=== PATIENT | female | born 1945 | race Hispanic/Latino ===

== ENCOUNTER 2021-04-21 10:04 | Emergency (ER) | payer MEDICARE ==
[~2021-04-21] VITALS: Ht 149.9 cm; Wt 68.0 kg
[2021-04-21 10:55] VITALS: BP 120/50
[2021-04-21 11:55] VITALS: BP 119/47
[2021-04-21 12:42] VITALS: BP 134/45
[2021-04-21] MEDS ORDERED: KETOROLAC 60 MG VIAL (30MG/ML) IM SCH (12:45)
[2021-04-21] MEDS ORDERED: HYDROCODONE/ACETAMINOPHEN 10/325 MG TAB PO SCH (12:45)
[2021-04-21] MEDS ORDERED: TRIAMCINOLONE ACETONIDE 40 MG/ML 1ML VIAL IM SCH (13:00)
[2021-04-21] MEDS ORDERED: BUPIVACAINE/PF 0.5% 30ML VIAL INJ SCH (13:00)
[2021-04-21] MEDS ORDERED: TRAM1TAB PO ×2 (13:33→13:37)
== END 2021-04-21 14:03 | disposition home or self-care (01) ==
LOC: EDH 10:04
DX: M70.62 Trochanteric bursitis, left hip (principal); I10 Essential (primary) hypertension; E78.5 Hyperlipidemia, unspecified; I25.10 Atherosclerotic heart disease of native coronary artery without angina pectoris; Y93.89 Activity, other specified
CPT/HCPCS: 20610; 96372; 99283; J1885; J3301; J3490

== ENCOUNTER → 2021-12-24 | Outpatient (CLI) | payer MEDICARE ==
[~2021-12-24] MED LIST: TRAM1TAB PO
== END | disposition home or self-care (01) ==
LOC: RAH 13:29
PROVIDERS: ATTEND Family Medicine
DX: M25.831 Other specified joint disorders, right wrist (principal); M85.88 Other specified disorders of bone density and structure, other site; G31.89 Other specified degenerative diseases of nervous system; W19.XXXA Unspecified fall, initial encounter; Y93.89 Activity, other specified; Y92.89 Other specified places as the place of occurrence of the external cause; Y99.8 Other external cause status
CPT/HCPCS: 70450; 73200

== ENCOUNTER 2023-06-14 13:08 | Emergency (ER) | payer MEDICARE ==
[~2023-06-14] VITALS: Ht 157.5 cm; Wt 62.6 kg
[2023-06-14] MEDS: DESMOPRESSIN 40MCG INJ 24 MCG in 0.9%NACL 50ML 50 ML IJ SCH ×2
[~2023-06-14 13:08] MED LIST changes: +ACET325C6 PO; +ASPRIN PO; +ATOR40TA69 PO; +CETI10TA57 PO; +CLOP-31 PO; +DOCU-116 PO; +ERGO1POW10 MC; +FLUT16H NASAL; +LACT10SO9 PO; +SERT-438 PO; +TIZA2CAP9 PO; -TRAM1TAB PO; +TRAM1TAB2 PO
[2023-06-14] MEDS ORDERED: NACL IV ONE (15:30)
[2023-06-14 15:34] LABS: BASOPHILS # (AUTO) 0.03 K/uL (0.00-0.20); BASOPHILS % (AUTO) 0.2 % (0.0-5.0); HEMATOCRIT 35.1 % (36-48); IMMATURE GRANULOCYTE ABSOLUTE 0.07 K/uL (0-1); LYMPHOCYTES # (AUTO) 0.8 K/uL (1.0-4.8); MEAN CORPUSCULAR HEMOGLOBIN 29.9 pg (27.0-33.0); MEAN CORPUSCULAR VOLUME 90.5 fL (79-99); MONOCYTES # (AUTO) 0.6 K/uL (0.1-1.0); MONOCYTES % (AUTO) 3.1 % (3.0-13.0); NEUTROPHILS # (AUTO) 17.7 K/uL (1.8-7.7); NEUTROPHILS % (AUTO) 92.3 % (40.0-77.0); PLATELET COUNT (AUTO) 333 K/uL (130-400); RED BLOOD CELL COUNT(AUTO) 3.88 MIL/uL (4.00-5.50); RED CELL DISTRIBUTION WIDTH 15.7 % (11.0-15.5); WHITE BLOOD COUNT (AUTO) 19.1 K/uL (4.8-10.8)
[2023-06-14 15:55] LABS: CREATININE 0.9 mg/dL (0.5-1.5); POTASSIUM 4.6 mmol/L (3.5-5.1)
[2023-06-14 16:00] LABS: ALBUMIN 3.5 g/dL (3.5-5.0); BILIRUBIN,TOTAL 0.6 mg/dL (0.2-1.0); TOTAL PROTEIN, SERUM 7.6 g/dL (6.0-8.3)
[2023-06-14 16:02] LABS: APPEARANCE,URINE TURBID (CLEAR); BILIRUBIN,URINE NEGATIVE (NEGATIVE); COLOR,URINE YELLOW (YELLOW); GLUCOSE, URINE (UA) NEGATIVE (NEGATIVE); KETONES,URINE NEGATIVE (NEGATIVE); LEUKOCYTE ESTERASE ,URINE 500 Leu/uL (NEGATIVE); NITRATE,URINE NEGATIVE (NEGATIVE); PROTEIN,URINE 20 mg/dL (NEGATIVE); UROBILINOGEN,URINE 0.2 mg/dL (0.2-1.0)
[2023-06-14 16:03] LABS: ADD UA MICROSCOPIC YES
[2023-06-14 16:07] LABS: BACTERIA,URINE MOD /HPF (None Seen); MUCUS,URINE RARE LPF (None Seen); RBC,URINE 26-50 /HPF (0-1); SQUAMOUS EPITHELIAL CELL,UR RARE /HPF (0-2); WBC,URINE 51-100 /HPF (0-1)
[2023-06-14] MEDS ORDERED: NICARDIPINE 25MG INJ IV ONE (17:59)
[2023-06-14] MEDS ORDERED: NICARDIPINE 25MG INJ 25 MG in 0.9% NACL 250ML 240 ML IV SCH (18:00)
[2023-06-14] MEDS ORDERED: ETOMIDATE 20MG VIAL ONE (19:06)
[2023-06-14] MEDS ORDERED: ROCURONIUM BROMIDE 10MG/1ML 5ML VL ONE (19:07)
[2023-06-14] MEDS ORDERED: FENTANYL 1000MCG+NS 100ML 100 ML IV ONE (19:12)
[2023-06-14 19:25] VITALS: PULSE 87; O2SAT 99
[2023-06-14] MEDS: MIDAZOLAM HCL 50 MG in 0.9%NACL 50ML 50 ML IV SCH (20:02)
[2023-06-14] MEDS: FENTANYL 2500MCG+NS 250ML IV.SOLN IV SCH (20:02)
[2023-06-14 20:04] LABS: ABG BASE EXCESS -2.5 mmol/L (-2.0-3.0); ABG HCO3 18.3 mmol/L (21.0-28.0); ABG OXYGEN SATURATION 98.1 % (95.0-99.0); ABG PCO2 21 mmHg (32-45); ABG PH 7.553 (7.35-7.450); CARBON MONOXIDE 0.3; HHb 1.9; PO2, ARTERIAL BG 112.4 mmHg (83.0-108.0); VENT MODE, BG AC (ROOM AIR)
[2023-06-14 20:34] LABS: INR 0.94 (0.85-1.15)
[2023-06-14 20:35] LABS: PARTIAL THROMBOPLASTIN TIME 27.7 SEC (26.3-35.5)
[2023-06-14 20:41] LABS: SARS-CoV-2, RNA, NAAT NEGATIVE SARS CoV-2 (NEGATIVE)
[2023-06-14] MEDS ORDERED: MANNITOL 20% 250ML BAG 250 ML IV ONE (20:46)
[2023-06-14] MEDS ORDERED: LEVETIRACETAM 500 MG/5 ML SD VIAL IV ONE (20:47)
[2023-06-14] MEDS ORDERED: LEVETIRACETAM 500 MG/5 ML SD VIAL IV SCH (21:00)
[2023-06-14] MEDS ORDERED: MANNITOL 20% 500ML BAG 500 ML IV SCH (21:00)
[2023-06-14 21:28] LABS: ABG BASE EXCESS -4.5 mmol/L (-2.0-3.0); ABG HCO3 19.4 mmol/L (21.0-28.0); ABG OXYGEN SATURATION 97.7 % (95.0-99.0); ABG PCO2 31 mmHg (32-45); ABG PH 7.412 (7.35-7.450); CARBON MONOXIDE 0.5; HHb 2.3; PO2, ARTERIAL BG 114.5 mmHg (83.0-108.0); VENT MODE, BG AC (ROOM AIR)
[2023-06-14 21:35] VITALS: PULSE 70; O2SAT 99
[2023-06-14] MEDS ORDERED: PROPOFOL 1000 MG/100 ML 100 ML IV ONE (22:51)
[2023-06-14 23:00] VITALS: PULSE 69; O2SAT 99
[2023-06-14] MEDS ORDERED: PROPOFOL 1000 MG/100 ML 100 ML IV SCH (23:00)
[2023-06-15] MEDS: DESMOPRESSIN 40MCG INJ 24 MCG in 0.9%NACL 50ML 50 ML IJ SCH ×2
[2023-06-15 00:01] VITALS: PULSE 71; O2SAT 99
[2023-06-15] MEDS ORDERED: FENTANYL 1000MCG+NS 100ML 100 ML IV ONE ×2 (00:24→07:39)
[2023-06-15] MEDS: FENTANYL 2500MCG+NS 250ML IV.SOLN IV SCH (00:28)
[2023-06-15] MEDS: MIDAZOLAM HCL 50 MG in 0.9%NACL 50ML 50 ML IV SCH (00:46)
[2023-06-15] MEDS ORDERED: IOHEXOL-350 75 ML VIAL IV ONE (00:58)
[2023-06-15 03:28] VITALS: PULSE 71; O2SAT 100
[2023-06-15 06:28] VITALS: PULSE 68; O2SAT 99
[2023-06-15 06:47] VITALS: BP 104/52; PULSE 70; RESP 10; O2SAT 99
== END 2023-06-15 08:28 | disposition short-term general hospital (02) ==
LOC: EDH 13:08
DX: I61.8 Other nontraumatic intracerebral hemorrhage (principal); I61.5 Nontraumatic intracerebral hemorrhage, intraventricular; G93.40 Encephalopathy, unspecified; K21.9 Gastro-esophageal reflux disease without esophagitis; E78.00 Pure hypercholesterolemia, unspecified; Z79.02 Long term (current) use of antithrombotics/antiplatelets; Z86.73 Personal history of transient ischemic attack (TIA), and cerebral infarction without residual deficits; Z20.822 Contact with and (suspected) exposure to COVID-19
CPT/HCPCS: 99291; 70496; 31500; 96365; 71045; 96361; 96375; 87635; 82947 ×2; 82435 ×2; 84484; 80053; 82803 ×2; 83880; 85025; 85610; 85730; 86850; 86900; 86901; 87040 ×2; 87077; 87088; 87186; 83930; 81001; 36415 ×2; 70498; 99292; 36600 ×2; 93005; 70450 ×2; 84132 ×2; 84295 ×2; 85018 ×2; 51702; 83605 ×4; C9803; J7040; J3010 ×3; J1953; J3490 ×3; J2704; Q9967; 36430; 94002; 96374

== ENCOUNTER 2024-07-28 14:17 | Inpatient (IN) | payer MEDICARE ==
[~2024-07-28] VITALS: Ht 149.9 cm; Wt 77.2 kg
[2024-07-28 14:31] LABS: ABG BASE EXCESS -1.8 mmol/L (-2.0-3.0); ABG HCO3 21.8 mmol/L (21.0-28.0); ABG OXYGEN SATURATION 97.2 % (94.0-98.0); ABG PCO2 33 mmHg (32-45); ABG PH 7.432 (7.350-7.450); CARBON MONOXIDE 0.3 % (0.5-1.5); DEVICE COMMENT RR JESSE; HHb 2.8; PO2, ARTERIAL BG 87.1 mmHg (83.0-108.0); VENT MODE, BG 3LNC (ROOM AIR)
[2024-07-28 14:43] LABS: BASOPHILS # (AUTO) 0.03 K/uL (0.00-0.20); BASOPHILS % (AUTO) 0.2 % (0.0-5.0); EOSINOPHILS % (AUTO) 1.5 % (0.0-8.0); HEMATOCRIT 37.7 % (36-48); IMMATURE GRANULOCYTE ABSOLUTE 0.04 K/uL (0-1); LYMPHOCYTES # (AUTO) 1.1 K/uL (1.0-4.8); LYMPHOCYTES % (AUTO) 8.2 % (21.0-51.0); MEAN CORPUSCULAR HEMOGLOBIN 31.6 pg (27.0-33.0); MEAN CORPUSCULAR HGB CONC 33.7 g/dL (32.0-36.0); MEAN CORPUSCULAR VOLUME 93.8 fL (79-99); MONOCYTES # (AUTO) 0.8 K/uL (0.1-1.0); MONOCYTES % (AUTO) 6.1 % (3.0-13.0); NEUTROPHILS # (AUTO) 11.4 K/uL (1.8-7.7); NEUTROPHILS % (AUTO) 83.7 % (40.0-77.0); PLATELET COUNT (AUTO) 223 K/uL (130-400); RED BLOOD CELL COUNT(AUTO) 4.02 MIL/uL (4.00-5.50); RED CELL DISTRIBUTION WIDTH 13.1 % (11.0-15.5); WHITE BLOOD COUNT (AUTO) 13.6 K/uL (4.8-10.8)
[2024-07-28 14:54] LABS: CREATININE 0.9 mg/dL (0.5-1.0); POTASSIUM 4.3 mmol/L (3.5-5.1)
[2024-07-28 14:57] VITALS: PULSE 126; RESP 20
[2024-07-28 14:57] LABS: SARS-CoV-2, RNA, NAAT NEGATIVE SARS CoV-2 (NEGATIVE)
[2024-07-28] MEDS: IpraTROPium/alBUTERol SULFATE 3 ML SOLUTION IH ONE (15:00)
[2024-07-28 15:05] LABS: INFLUENZA TYPE A Negative For Type A (NEGATIVE); INFLUENZA TYPE B Negative For Type B (NEGATIVE)
[2024-07-28] MEDS: ASPIRIN 325MG TAB PO ONE (16:36)
[2024-07-28 16:58] LABS: APPEARANCE,URINE TURBID (CLEAR); BILIRUBIN,URINE NEGATIVE (NEGATIVE); COLOR,URINE YELLOW (YELLOW); GLUCOSE, URINE (UA) NEGATIVE (NEGATIVE); KETONES,URINE NEGATIVE (NEGATIVE); LEUKOCYTE ESTERASE ,URINE 500 Leu/uL (NEGATIVE); NITRATE,URINE 1+ (NEGATIVE); OCCULT BLOOD,URINE SMALL (NEGATIVE); PROTEIN,URINE 30 mg/dL (NEGATIVE); UROBILINOGEN,URINE 0.2 mg/dL (0.2-1.0)
[2024-07-28 17:00] LABS: ADD UA MICROSCOPIC YES
[2024-07-28 17:05] LABS: BACTERIA,URINE MOD /HPF (None Seen); SQUAMOUS EPITHELIAL CELL,UR FEW /HPF (0-2); UNCLASSIFIED CRYSTAL 2 /HPF (None Seen); WBC CLUMP FEW /HPF (0-1); WBC,URINE 51-100 /HPF (0-1); YEAST,URINE BUDDING RARE /HPF (None Seen)
[2024-07-28] MEDS ORDERED: GLYC30DR3 OP (17:58)
[2024-07-28] MEDS ORDERED: ESCI5TAB16 PEG (17:58)
[2024-07-28] MEDS ORDERED: IPRA3AMP24 IH (17:58)
[2024-07-28] MEDS ORDERED: FURO20TA4 PEG (17:58)
[2024-07-28] MEDS ORDERED: MULT9LIQ6 PO (17:58)
[2024-07-28] MEDS ORDERED: ACET650O3 PEG (17:58)
[2024-07-28] MEDS ORDERED: FAMO20TA8 PEG (17:58)
[2024-07-28] MEDS ORDERED: SIME80TA12 PEG (17:58)
[2024-07-28] MEDS ORDERED: LEVE750T66 PEG (17:58)
[2024-07-28] MEDS ORDERED: DOCU60SY6 PO (17:58)
[2024-07-28] MEDS ORDERED: ACETAMINOPHEN 650 MG PEG PRN (18:30)
[2024-07-28] MEDS: ZOSYN 3.375GM +NS 50ML IV ONE (18:46)
[2024-07-28] MEDS: 0.9%NACL 1000ML 1,000 ML IV ONE (18:46)
[2024-07-28 19:01] LABS: HEMOGLOBIN A1C 5.2 % (4.0-6.0)
[2024-07-28] MEDS: ALBUTEROL 0.083% 2.5 MG/3 ML INH IH PRN (19:06)
[2024-07-28 19:08] LABS: THYROID STIMULATING HORMONE 1.08 uIU/mL (0.36-3.74)
[2024-07-28 19:09] VITALS: PULSE 91; RESP 18
[2024-07-28 19:10] VITALS: PULSE 93; RESP 18; O2SAT 98
[2024-07-28] MEDS: 0.9%NACL 1000ML 1,000 ML IV SCH (19:23)
[2024-07-28] MEDS: PHARMACY COMMUNICATION MISC SCH (19:23)
[2024-07-28] MEDS: [UNRECOGNIZED DRUG - MIXTURE] IV SCH (19:23)
[2024-07-28] MEDS ORDERED: acetaMINOPHEN 650 MG/20.3 ML UDCUP PEG PRN (19:30)
[2024-07-28] MEDS: AZITHROMYCIN 500MG+NS 250ML 250 ML IVPB SCH (20:40)
[2024-07-28] MEDS: ARTIFICAL TEARS SOL 15 ML OP SCH (20:40)
[2024-07-28] MEDS: FAMOTIDINE 20MG VIAL IV SCH (20:40)
[2024-07-28] MEDS: DOCUSATE SODIUM PO SCH (20:41)
[2024-07-28] MEDS ORDERED: GLYCERIN OP SCH (21:00)
[2024-07-28] MEDS ORDERED: [UNRECOGNIZED DRUG - OTHER] OP SCH (21:00)
[2024-07-28] MEDS ORDERED: PROPYLENE GLYCOL OP SCH (21:00)
[2024-07-28] MEDS ORDERED: NON-FORMULARY MEDICATION 1 EACH (Levetiracetam 750 MG) PEG SCH (21:00)
[2024-07-28] MEDS ORDERED: DIATR MEGLU/DIATRIZOATE SODIUM 30 ML BOTTLE ONE (21:20)
[2024-07-28] MEDS ORDERED: hydrALAZine 20MG/ML VIAL IV PRN (21:30)
[2024-07-28 22:55] VITALS: BP 164/75; PULSE 77; RESP 18; TEMP 97
[2024-07-29] VITALS (11 sets, daily range): BP systolic 119–164; BP diastolic 60–82; PULSE 66–78; RESP 18–20; TEMP 97–98.6; O2SAT 98–100
[2024-07-29] MEDS ORDERED: 0.9%NACL 50ML IV SCH (02:00)
[2024-07-29] MEDS: ZOSYN 3.375GM +NS 50ML IVPB SCH (02:27)
[2024-07-29 06:55] LABS: BASOPHILS # (AUTO) 0.02 K/uL (0.00-0.20); BASOPHILS % (AUTO) 0.3 % (0.0-5.0); EOSINOPHILS # (AUTO) 0.13 K/uL (0.00-0.70); EOSINOPHILS % (AUTO) 2.1 % (0.0-8.0); HEMATOCRIT 33.8 % (36-48); IMMATURE GRANULOCYTE ABSOLUTE 0.02 K/uL (0-1); LYMPHOCYTES # (AUTO) 1.5 K/uL (1.0-4.8); LYMPHOCYTES % (AUTO) 24.1 % (21.0-51.0); MEAN CORPUSCULAR HEMOGLOBIN 31.1 pg (27.0-33.0); MEAN CORPUSCULAR HGB CONC 32.5 g/dL (32.0-36.0); MEAN CORPUSCULAR VOLUME 95.5 fL (79-99); MONOCYTES # (AUTO) 0.8 K/uL (0.1-1.0); MONOCYTES % (AUTO) 13.6 % (3.0-13.0); NEUTROPHILS # (AUTO) 3.6 K/uL (1.8-7.7); NEUTROPHILS % (AUTO) 59.6 % (40.0-77.0); PLATELET COUNT (AUTO) 199 K/uL (130-400); RED BLOOD CELL COUNT(AUTO) 3.54 MIL/uL (4.00-5.50); RED CELL DISTRIBUTION WIDTH 13.2 % (11.0-15.5); WHITE BLOOD COUNT (AUTO) 6.1 K/uL (4.8-10.8)
[2024-07-29 07:15] LABS: CREATININE 0.7 mg/dL (0.5-1.0)
[2024-07-29] MEDS: MULTIVIT PO SCH (09:00)
[2024-07-29] MEDS: Escitalopram Oxalate 5 MG PO SCH (09:00)
[2024-07-29] MEDS ORDERED: furoSEMIDE 20 MG TABLET PEG SCH (09:00)
[2024-07-29] MEDS: MINERALS PO SCH (09:00)
[2024-07-29] MEDS: SIMETHICONE 80 MG TAB.CHEW PEG SCH (09:00)
[2024-07-29] MEDS: FERROUS FUM PO SCH (09:00)
[2024-07-29] MEDS ORDERED: COMPOUND IV MISC 1 EACH IVSOLN MISC PRN (09:30)
[2024-07-29] MEDS ORDERED: DIATR MEGLU/DIATRIZOATE SODIUM 30 ML BOTTLE ONE (11:37)
[2024-07-29] MEDS: acetylCYSTeine10% 4ML VIAL ONE (23:00)
[2024-07-29] MEDS: IpraTROPium 0.5 MG/2.5 ML INH IH SCH (23:00)
[2024-07-29] MEDS: acetylCYSTeine10% 4ML VIAL IH SCH (23:20)
[2024-07-30] VITALS (14 sets, daily range): BP systolic 134–173; BP diastolic 56–93; PULSE 53–70; RESP 18–20; TEMP 97.6–98.1; O2SAT 98–100
[2024-07-30 03:58] LABS: BASOPHILS # (AUTO) 0.03 K/uL (0.00-0.20); BASOPHILS % (AUTO) 0.5 % (0.0-5.0); EOSINOPHILS # (AUTO) 0.42 K/uL (0.00-0.70); EOSINOPHILS % (AUTO) 6.3 % (0.0-8.0); HEMATOCRIT 35.1 % (36-48); IMMATURE GRANULOCYTE ABSOLUTE 0.01 K/uL (0-1); LYMPHOCYTES # (AUTO) 1.3 K/uL (1.0-4.8); LYMPHOCYTES % (AUTO) 19.3 % (21.0-51.0); MEAN CORPUSCULAR HEMOGLOBIN 31.3 pg (27.0-33.0); MEAN CORPUSCULAR HGB CONC 31.9 g/dL (32.0-36.0); MONOCYTES # (AUTO) 0.5 K/uL (0.1-1.0); MONOCYTES % (AUTO) 7.4 % (3.0-13.0); NEUTROPHILS # (AUTO) 4.4 K/uL (1.8-7.7); NEUTROPHILS % (AUTO) 66.3 % (40.0-77.0); PLATELET COUNT (AUTO) 196 K/uL (130-400); RED BLOOD CELL COUNT(AUTO) 3.58 MIL/uL (4.00-5.50); RED CELL DISTRIBUTION WIDTH 13.1 % (11.0-15.5); WHITE BLOOD COUNT (AUTO) 6.6 K/uL (4.8-10.8)
[2024-07-30 04:12] LABS: CREATININE 0.8 mg/dL (0.5-1.0); POTASSIUM 3.9 mmol/L (3.5-5.1)
[2024-07-30] MEDS: ASPIRIN 81 MG EC TAB PEG SCH (09:11)
[2024-07-30 14:55] LABS: CHOLESTEROL 139 mg/dL (<200); HDL CHOLESTEROL 45 mg/dL (35-85); LDL DIRECT 83 mg/dL (0-99); TRIGLYCERIDES 87 mg/dL (30-200)
[2024-07-31] VITALS (8 sets, daily range): BP systolic 157–174; BP diastolic 81–92; PULSE 67–72; RESP 18–20; TEMP 97.7–98.9; O2SAT 100
[2024-07-31 04:01] LABS: BASOPHILS # (AUTO) 0.03 K/uL (0.00-0.20); BASOPHILS % (AUTO) 0.5 % (0.0-5.0); EOSINOPHILS # (AUTO) 0.43 K/uL (0.00-0.70); EOSINOPHILS % (AUTO) 7.3 % (0.0-8.0); HEMATOCRIT 33.2 % (36-48); IMMATURE GRANULOCYTE ABSOLUTE 0.02 K/uL (0-1); LYMPHOCYTES # (AUTO) 1.2 K/uL (1.0-4.8); LYMPHOCYTES % (AUTO) 20.8 % (21.0-51.0); MEAN CORPUSCULAR HEMOGLOBIN 30.8 pg (27.0-33.0); MEAN CORPUSCULAR HGB CONC 33.4 g/dL (32.0-36.0); MEAN CORPUSCULAR VOLUME 92.2 fL (79-99); MONOCYTES # (AUTO) 0.4 K/uL (0.1-1.0); MONOCYTES % (AUTO) 7.3 % (3.0-13.0); NEUTROPHILS # (AUTO) 3.8 K/uL (1.8-7.7); NEUTROPHILS % (AUTO) 63.8 % (40.0-77.0); PLATELET COUNT (AUTO) 236 K/uL (130-400); RED CELL DISTRIBUTION WIDTH 12.6 % (11.0-15.5); WHITE BLOOD COUNT (AUTO) 5.9 K/uL (4.8-10.8)
[2024-07-31 04:11] LABS: CREATININE 0.7 mg/dL (0.5-1.0); POTASSIUM 3.2 mmol/L (3.5-5.1)
[2024-07-31] MEDS ORDERED: MAGNESIUM 2GM PREMIX 50ML 50 ML IV PRN (04:30)
[2024-07-31] MEDS ORDERED: POTASSIUM CHLORIDE 20MEQ/100ML 100 ML IV PRN (04:30)
[2024-07-31] MEDS ORDERED: KCL 20 MEQ ERTAB PO PRN (04:30)
[2024-07-31] MEDS: POTASSIUM CHLORIDE 10% ELIXIR 20 MEQ/15 ML UDCUP PO PRN (05:20)
== END 2024-07-31 16:05 | DRG 871 ==
LOC: EDH 14:17 → EDHIP 18:16 → 4BH 22:28
PROVIDERS: ADMIT Internal Medicine; ATTEND Internal Medicine
DX: A41.50 Gram-negative sepsis, unspecified (principal); I21.A1 Myocardial infarction type 2; J69.0 Pneumonitis due to inhalation of food and vomit; J96.01 Acute respiratory failure with hypoxia; E78.5 Hyperlipidemia, unspecified; I10 Essential (primary) hypertension; I25.10 Atherosclerotic heart disease of native coronary artery without angina pectoris; I05.0 Rheumatic mitral stenosis; K21.9 Gastro-esophageal reflux disease without esophagitis; Z20.822 Contact with and (suspected) exposure to COVID-19; E11.9 Type 2 diabetes mellitus without complications; I69.320 Aphasia following cerebral infarction; Z74.01 Bed confinement status; Z79.899 Other long term (current) drug therapy
CPT/HCPCS: 31720; 36415; 36600; 70450; 71045; 71250; 74018; 80048; 80061; 81001; 82306; 82435; 82550; 82607; 82803; 82947; 82948; 83036; 83605; 84132; 84145; 84295; 84443; 84484; 85018; 85025; 86140; 87040; 87071; 87086; 87186; 87205; 87635; 87804; 93005; 93306; 94640; 94664; 99291; G0378; J0456; J1953; J2543; J3490; J7608; Q9963

== ENCOUNTER 2024-11-19 02:59 | Inpatient (IN) | payer MEDICARE ==
[~2024-11-19] VITALS: Ht 160 cm; Wt 70.7 kg
[2024-11-19] VITALS (24 sets, daily range): BP systolic 95–140; BP diastolic 40–98; PULSE 66–100; RESP 12–22; TEMP 97.2–98.2; O2SAT 94–100
[~2024-11-19 02:59] MED LIST changes: -ACET325C6 PO; +ACET650O3 PEG; -ASPRIN PO; -ATOR40TA69 PO; -CETI10TA57 PO; -CLOP-31 PO; -DOCU-116 PO; +DOCU60SY6 PO; -ERGO1POW10 MC; +ESCI5TAB16 PEG; +FAMO20TA8 PEG; -FLUT16H NASAL; +FURO20TA4 PEG; +GLYC30DR3 OP; +IPRA3AMP24 IH; -LACT10SO9 PO; +LEVE750T66 PEG; +MULT9LIQ6 PO; -SERT-438 PO; +SIME80TA12 PEG; -TIZA2CAP9 PO; -TRAM1TAB2 PO
[2024-11-19 03:08] LABS: ABG HCO3 25.9 mmol/L (21.0-28.0); ABG OXYGEN SATURATION 93.2 % (94.0-98.0); ABG PCO2 38 mmHg (32-45); ABG PH 7.451 (7.350-7.450); CARBON MONOXIDE 0.6 % (0.5-1.5); DEVICE COMMENT RR RN; HHb 6.7; PO2, ARTERIAL BG 64.9 mmHg (83.0-108.0); VENT MODE, BG RA (ROOM AIR)
[2024-11-19] MEDS ORDERED: dexmedeTOMIDine 400MCG/NS100ML IV SCH ×2 (04:00→04:30)
[2024-11-19 04:14] LABS: BASOPHILS # (AUTO) 0.04 K/uL (0.00-0.20); BASOPHILS % (AUTO) 0.5 % (0.0-5.0); CREATININE 0.9 mg/dL (0.5-1.0); EOSINOPHILS # (AUTO) 0.01 K/uL (0.00-0.70); EOSINOPHILS % (AUTO) 0.1 % (0.0-8.0); HEMATOCRIT 37.8 % (36-48); IMMATURE GRANULOCYTE ABSOLUTE 0.06 K/uL (0-1); MEAN CORPUSCULAR HEMOGLOBIN 30.7 pg (27.0-33.0); MEAN CORPUSCULAR HGB CONC 33.9 g/dL (32.0-36.0); MEAN CORPUSCULAR VOLUME 90.6 fL (79-99); MONOCYTES # (AUTO) 0.9 K/uL (0.1-1.0); MONOCYTES % (AUTO) 10.8 % (3.0-13.0); NEUTROPHILS # (AUTO) 6.6 K/uL (1.8-7.7); NEUTROPHILS % (AUTO) 75.9 % (40.0-77.0); PLATELET COUNT (AUTO) 218 K/uL (130-400); POTASSIUM 4.2 mmol/L (3.5-5.1); RED BLOOD CELL COUNT(AUTO) 4.17 MIL/uL (4.00-5.50); RED CELL DISTRIBUTION WIDTH 13.6 % (11.0-15.5); WHITE BLOOD COUNT (AUTO) 8.7 K/uL (4.8-10.8)
[2024-11-19] MEDS: dexmedeTOMIDine 400MCG/NS100ML IV SCH (04:17)
[2024-11-19 04:21] LABS: ABG BASE EXCESS 1.5 mmol/L (-2.0-3.0); ABG OXYGEN SATURATION 97.9 % (94.0-98.0); ABG PCO2 41 mmHg (32-45); ABG PH 7.425 (7.350-7.450); CARBON MONOXIDE 0.5 % (0.5-1.5); DEVICE COMMENT RR RN; HHb 2.1; PO2, ARTERIAL BG 106.6 mmHg (83.0-108.0); VENT MODE, BG HFNC (ROOM AIR)
[2024-11-19 04:26] LABS: SARS-CoV-2, RNA, NAAT NEGATIVE SARS CoV-2 (NEGATIVE)
[2024-11-19] MEDS ORDERED: dexmedeTOMIDINE 200MCG/NS 50ML IV SCH (04:30)
[2024-11-19 04:31] LABS: INFLUENZA TYPE A Negative For Type A (NEGATIVE); INFLUENZA TYPE B Negative For Type B (NEGATIVE)
[2024-11-19 05:05] LABS: B-TYPE NATRIURETIC PEPTIDE 804 pg/mL (0-100)
[2024-11-19] MEDS: VANCOMYCIN KIT 1 GM/250 ML IV.KIT IV ONE (05:10)
[2024-11-19] MEDS: ZOSYN 3.375GM +NS 50ML IVPB ONE (05:10)
--- NOTE | 2024-11-19 06:13 | ERN ---
General Chief Complaint: Dyspnea/Respdistress Stated Complaint: RESPIRATORY DISTRESS Time Seen by MD: 03:03 History of Present Illness Initial Comments Mrs Humphries is a 79-year-old female significant past medical history chronic dysphagia, seizure disorder, PEG tube dependence, heart failure who presents to the ER with a chief complaint of shortness of breath. It was nonverbal is a history can not be taken. Patient was brought in from her [place] [facility] after found to be in respiratory distress. Patient was saturating in the 80s and was tachypneic. Allergies: Coded Allergies: No Allergy Information Available (Verified Allergy, Unknown, 04/21/21) No Known Drug Allergies (Unverified Allergy, Unknown, 05/20/23) Home Meds Reported Medications Escitalopram Oxalate (Escitalopram Oxalate) 5 Mg Tablet, 5 MG PEG DAILY, TAB 07/28/24 Docusate Sodium (Docusate Sodium) 60 Mg/15 Ml Syrup, 60 MG PO BID, ML 07/28/24 Multivit &Minerals/Ferrous Fum (Multivitamin Liquid) 9 Mg Iron/15 Ml Liquid, 9 MG PO DAILY 07/28/24 Levetiracetam (Levetiracetam) 750 Mg Tab.er.24h, 750 MG PEG BID, TAB 07/28/24 Glycerin/Propylene Glycol (Artificial Tears Drops) 0.3 %-1 % Drops, 30 ML OP TID, DROP 07/28/24 Ipratropium/Albuterol Sulfate (Iprat-Albut 0.5-3(2.5) mg/3 ml) 0.5 Mg-3 Mg (2.5 Mg Base)/3 Ml Ampul.neb, 3 ML IH Q6HPRN PRN for COUGH 07/28/24 Famotidine (Famotidine) 20 Mg Tablet, 20 MG PEG DAILY, TAB 24 Simethicone (Simethicone) 80 Mg Tab.chew, 80 MG PEG DAILY, TAB.CHEW 07/28/24 Acetaminophen (Acetaminophen) 650 Mg/20.3 Ml Oral.susp, 650 MG PEG Q4HPRN PRN for TEMPERATURE, ML 07/28/24 Furosemide (Furosemide) 20 Mg Tablet, 20 MG PEG DAILY, TAB 07/28/24 Past Medical History Past Medical History: CAD, CVA, Diabetes-Type II, GERD, Heart Disease, Hypertension, CO, Seizure, TIA, Other Medical History Other: SUBDURAL HEMORRHAGE, DYSPHAGIA, HEMIPLEGIA, HEMIPARESIS Past Surgical History: Unknown Family History Family History: Negative Social History Social History: Negative, Lives in [facility] Female( History) History: Not Applicable ROS Dictation ROS and has been was done given patient's nonverbal status Physical Exam Physical Exam Dictation General: nonverbal tachypneic patient Head/Face: Normocephalic, atraumatic Eyes: PERRL, Neck: Trachea midline, supple, Cardiovascular: Tachycardic normal S1-S2 Respiratory: Diminished breath sounds, tachypneic Abdomen: Soft, non-tender, non-distended positive PEG tube Skin: Warm, dry, normal turgor, no rash MS/Extremity: Pulses equal Neuro: Nonverbal, moving extremities spontaneously Results Laboratory and Microbiology Lab and Micro Result Laboratory Tests Test 11/19/24 03:06 11/19/24 03:41 11/19/24 03:54 11/19/24 04:19 Blood Gas Specimen Type Arterial Arterial Arterial Blood pH 7.451 (7.350-7.450) 7.425 (7.350-7.450) Arterial Blood Partial Pressure CO2 38 mmHg (32-45) 41 mmHg (32-45) Arterial Blood Partial Pressure O2 64.9 mmHg (83.0-108.0) L 106.6 mmHg (83.0-108.0) Arterial Blood HCO3 25.9 mmol/L (21.0-28.0) 26.0 mmol/L (21.0-28.0) Arterial Blood Oxygen Saturation 93.2 % (94.0-98.0) L 97.9 % (94.0-98.0) Arterial Blood Base Excess 2.0 mmol/L (-2.0-3.0) 1.5 mmol/L (-2.0-3.0) Hemoglobin (Blood Gas) 13.6 g/dL (12.0-16.0) 13.6 g/dL (12.0-16.0) Sodium (Blood Gas) 134 MMOL/L (136-145) L 135 MMOL/L (136-145) L Bedside Potassium (Blood Gas) 3.7 MMOL/L (3.4-4.5) 3.8 MMOL/L (3.4-4.5) Bedside Chloride (Blood Gas) 98 MMOL/L (98-107) 97 MMOL/L (98-107) L Bedside Glucose (Blood Gas) 157 MG/DL (65-95) H 133 MG/DL (65-95) H Bedside Ionized Calcium (Blood Gas) 1.10 MMOL/L (1.15-1.33) L 1.11 MMOL/L (1.15-1.33) L Bedside Lactic Acid (Blood Gas) 2.10 MMOL/L (0.36-0.75) H 1.94 MMOL/L (0.36-0.75) H Blood Gas Temperature 37.0 CELSIUS (35.5-37.0) 37.0 CELSIUS (35.5-37.0) Blood Gas Vent Mode RA (ROOM AIR) HFNC (ROOM AIR) FiO2 21.0 % 40.0 % Blood Gas Specimen Comment RR RN RR RN Influenza Type A Antigen Negative For Type A Influenza Type B Antigen Negative For Type B SARS-CoV-2, RNA, NAAT NEGATIVE SARS CoV-2 White Blood Count 8.7 K/uL (4.8-10.8) Red Blood Count 4.17 MIL/uL (4.00-5.50) Hemoglobin 12.8 g/dL (12.0-16.0) Hematocrit 37.8 % (36-48) Mean Corpuscular Volume 90.6 fL (79-99) Mean Corpuscular Hemoglobin 30.7 pg (27.0-33.0) Mean Corpuscular Hemoglobin Concent 33.9 g/dL (32.0-36.0) Red Cell Distribution Width 13.6 % (11.0-15.5) Platelet Count 218 K/uL (130-400) Mean Platelet Volume 11.3 fL (7.5-10.5) H Immature Granulocyte % (Auto) 0.7 % (0-1) Neutrophils (%) (Auto) 75.9 % (40.0-77.0) Lymphocytes (%) (Auto) 12.0 % (21.0-51.0) L Monocytes (%) (Auto) 10.8 % (3.0-13.0) Eosinophils (%) (Auto) 0.1 % (0.0-8.0) Basophils (%) (Auto) 0.5 % (0.0-5.0) Neutrophils # (Auto) 6.6 K/uL (1.8-7.7) Lymphocytes # (Auto) 1.0 K/uL (1.0-4.8) Monocytes # (Auto) 0.9 K/uL (0.1-1.0) Eosinophils # (Auto) 0.01 K/uL (0.00-0.70) Basophils # (Auto) 0.04 K/uL (0.00-0.20) Absolute Immature Granulocyte (auto 0.06 K/uL (0-1) Nucleated Red Blood Cells 0.0 % (0.0-0.19) Sodium Level 135 mmol/L (136-145) L Potassium Level 4.2 mmol/L (3.5-5.1) Chloride Level 99 mmol/L (101-111) L Carbon Dioxide Level 25 mmol/L (21-32) Blood Urea Nitrogen 25 mg/dL (7-18) H Creatinine 0.9 mg/dL (0.5-1.0) Glomerular Filtration Rate Calc 65 mL/min (>90) Random Glucose 147 mg/dL (70-105) H Lactic Acid Level 2.2 mmol/L (0.8-2.5) Total Calcium 8.5 mg/dL (8.5-10.1) Total Creatine Kinase 73 U/L (21-232) # Troponin I High Sensitivity 20.1 ng/L (4-50) B-Type Natriuretic Peptide 804 pg/mL (0-100) H Blood Gas Flow-by 30.00 L/min (0.00-15.00) H MDM Patient has been placed on high-flow nasal cannula as well as Precedex. Patient will be admitted to the ICU for further evaluation and care MDM: Differential diagnosis: Acute hypoxic respiratory failure Rationale: Tests considered and ordered secondary to shared decision making include: labs, ECG and radiology Previous outside records reviewed: Old ER visits. Risk of complication and/or morbidity or mortality of patient management: None Medications-Per medication reconciliation Need for hospitalization: Patient does meet criteria for hospitalization. Need for emergency major/minor surgery: No There are no social concerns with this patient. Prescription drug management Prescriptions will include symptomatic care Patient's prior external medical records from other ER visits were reviewed by me as indicated. Prior testing and results from previous visits were reviewed. Prior tests were taken into account with medical decision making and resource utilization, independent historian/historians were used to obtain complete medical history. I independently interpreted the test that were performed, results were reviewed by me and considered findings on radiology if ordered. Medical management and examination interpretation discussions were had by me with other qualified healthcare professionals as indicated for the patient's care. ED Course Orders Procedure Category Date Status Time Arterial Blood Gas LAB 11/19/24 Complete Arterial + 03:06 O2 Nc Keep Sats CPOE 11/19/24 Transmitted Greater 92% 03:07 Cbc With Differential LAB 11/19/24 Complete 03:07 B-Type Natriuretic LAB 11/19/24 Complete Peptide 03:07 Cardiac Panel LAB 11/19/24 Complete 03:07 Chest 1vw RAD 11/19/24 Taken 03:07 12 Lead Ekg Tracing- EKG 11/19/24 Logged Technical 03:07 Basic Metabolic Panel LAB 11/19/24 Complete 03:07 Arterial Blood Gas + RT 11/19/24 Transmitted 03:22 Arterial Blood Gas + RT 11/19/24 Transmitted 04:30 Lactic Acid LAB 11/19/24 Complete 03:22 Blood Cult EFE 11/19/24 In Process 03:22 High Flow O2 Via Nc RT 11/19/24 Transmitted 03:22 Influenza Type A & B, LAB 11/19/24 Complete Rapid 03:49 Covid Rna Naat LAB 11/19/24 Complete 03:49 Dexmedetomidine PHA 11/19/24 Complete 400mcg/Op852it 04:00 Dexmedetomidine PHA 11/19/24 Complete 200mcg/Ns 50ml 04:30 Dexmedetomidine PHA 11/19/24 In Process 400mcg/Zs528ch 04:30 Dexmedetomidine PHA 11/19/24 In Process 400mcg/Ru791mn 04:30 Arterial Blood Gas LAB 11/19/24 Complete Arterial + 04:19 Zosyn 3.375gm+Ns 50ml PHA 11/19/24 Complete (Zosyn 3.375gm+Ns 05:00 Vancomycin 1g/250ml PHA 11/19/24 Complete Kit (Vancomycin 1g/2 05:00 Furosemide 40mg Vial PHA 11/19/24 In Process (Lasix 40mg Vial) 06:00 Admit Orders ADM 11/19/24 Transmitted 05:36 Critcal Care Consult CONPHYSVC 11/19/24 Transmitted 05:36 Current Medications Medications (Trade) Dose Ordered Sig/Xi Route PRN Reason Start Time Stop Time Status Last Admin Dose Admin Dexmedetomidine/ Sodium Chloride (PRECEdex 200MCG/ 50ML-NS) 200 mcg PROTOCOL IV 11/19/24 04:30 11/19/24 04:03 DC Dexmedetomidine/ Sodium Chloride (PRECEdex 400MCG/ 100ML-NS) 400 mcg PROTOCOL IV 11/19/24 04:00 11/19/24 04:01 DC Dexmedetomidine/ Sodium Chloride (PRECEdex 400MCG/ 100ML-NS) 400 mcg PROTOCOL IV 11/19/24 04:30 12/19/24 04:29 11/19/24 04:17 Dexmedetomidine/ Sodium Chloride (PRECEdex 400MCG/ 100ML-NS) 400 mcg PROTOCOL IV 11/19/24 04:30 12/19/24 04:29 Furosemide (LASix 40MG VIAL) 40 mg ONCE ONCE IV 11/19/24 06:00 11/19/24 06:01 Piperacillin Sod/ Tazobactam Sod (Zosyn 3.375gm+NS 50ml) 3.375 gm ONCE ONCE IVPB 11/19/24 05:00 11/19/24 05:01 DC 11/19/24 05:10 Vancomycin HCl (Vancomycin 1g/ 250ml Kit) 1 gm ONCE ONCE IV 11/19/24 05:00 11/19/24 05:01 DC 11/19/24 05:10 Vital Signs Date Time Temp Pulse Resp B/P (MAP) Pulse Ox O2 Delivery O2 Flow Rate FiO2 11/19/24 05:26 96 15 122/52 95 Hi-Flow N/C+ 30 30 11/19/24 04:00 107 22 136/91 98 Hi-Flow N/C+ 30 40 11/19/24 03:37 100 22 Hi Jose Juan Nasal Cannula 30.0 40 11/19/24 03:10 121 27 90/64 91 Nasal Cannula* 2 28 11/19/24 03:01 99.7 128 28 90/64 90 Room Air 0 11/19/24 03:00 99.7 128 28 90/64 90 Room Air* 0 21 DX & DISP Disposition: Inpatient Departure Impression: Primary Impression: Acute hypoxic respiratory failure Condition: Stable Referrals: OLIVERIO MONTOYA MD (PCP) KAUSHAL NICHOLS MD Nov 19, 2024 06:13
[2024-11-19] MEDS: furoSEMIDE 40MG VIAL IV ONE (06:28)
--- NOTE | 2024-11-19 07:05 | NUR ---
SBAR REPORT RECIEVED FROM KAUSHAL, PT IS STABLE, FAMILY AT BEDSIDE, PT ON HIGH FLOW 02 AT 30L, 30%FIO02 WILL CONTINUE TO MONITOR.
--- NOTE | 2024-11-19 07:13 | NUR ---
REPORT GIVEN TO HEDY AT THIS TIME
--- NOTE | 2024-11-19 07:46 | CONS ---
[facility] CONSULTATION NOTE Date Patient Seen: Nov 19, 2024 Time of Visit: 07:46 Supervising Physician: Fco Iglesias Reason for Consultation: Respiratory failure Primary Care Physician: Dr. Harrison Krishnamurthy Outpatient Specialists: NA Inpatient Consults: Dr. Putnam PROBLEM LIST: Acute hypoxic respiratory failure Health care acquired pneumonia likely aspiration event Sepsis without organ damage Lactic acidosis Hyponatremia- hypovolemic Dysphagia status post PEG tube placement History of CVA, aphasia, dysphagia post PEG tube placement, seizures, heart failure, CAD, GERD, diabetes mellitus, GERD HPI: This is a 79 year old female with past medical history of CVA, aphasia, dysphagia post PEG, seizures, heart failure, CAD, diabetes mellitus, GERD, hypertension who came in the hospital from group home facility with complaint of hypoxia. [facility] is consulted for respiratory failure and we will care management. Patient's information was obtained from chart review and patient's son in ED. According to the son, patient was having shortness of breath. Patient's son reported that the patient was admitted last time with the aspiration pneumonia. She was reported to have hypoxia with saturation oxygen 80%. For this reason patient was brought to the hospital procalcitonin for aspiration pneumonia. In ED patient was found to have patchy infiltrates in the left base. I asked patient's son at the bedside in ED , he reported to continue with aggressive care so full code status. PAST MEDICAL HX: CVA Aphasia Dysphagia Bedbound Seizures Heart failure CAD Diabetes mellitus Past surgical history Peg tube placement Social history Patient lives in group home facility Coded Allergies: No Allergy Information Available (Verified Allergy, Unknown, 04/21/21) No Known Drug Allergies (Unverified Allergy, Unknown, 05/20/23) REVIEW OF SYSTEMS: 12 point ROS reviewed with patient. Pertinent positives mentioned above. Otherwise negative. PHYSICAL EXAM: GENERAL: awake, aphasic. bedbound HEENT: EOMI, Sclera non icteric, moist mucosa NECK: Supple, no JVD, trachea midline LUNGS: Clear breath sounds bilaterally. No wheezes HEART: Regular rate and rhythm. Normal S1 and S2, without murmurs ABD: Abdomen soft, nontender. Bowel sounds present EXT: No clubbing cyanosis or edema NEURO: not following command Vital Signs (last 8hr) Date Time Temp Pulse Resp B/P (MAP) Pulse Ox O2 Delivery O2 Flow Rate FiO2 11/19/24 07:01 79 20 N/Cannula Oximizer Hi LPM 20.0 79 11/19/24 06:49 76 14 119/65 95 Hi-Flow N/C+ 30 30 11/19/24 06:05 82 17 107/40 96 Room Air* 0 21 11/19/24 05:26 96 15 122/52 95 Hi-Flow N/C+ 30 30 11/19/24 04:00 107 22 136/91 98 Hi-Flow N/C+ 30 40 11/19/24 03:37 100 22 Hi Jose Juan Nasal Cannula 30.0 40 11/19/24 03:10 121 27 90/64 91 Nasal Cannula* 2 28 11/19/24 03:01 99.7 128 28 90/64 90 Room Air 0 11/19/24 03:00 99.7 128 28 90/64 90 Room Air* 0 21 LABS: Hematology Labs: Test 11/19/24 03:54 Range/Units White Blood Count 8.7 4.8-10.8 K/uL Red Blood Count 4.17 4.00-5.50 MIL/uL Hemoglobin 12.8 12.0-16.0 g/dL Hematocrit 37.8 36-48 % Mean Corpuscular Volume 90.6 79-99 fL Mean Corpuscular Hemoglobin 30.7 27.0-33.0 pg Mean Corpuscular Hemoglobin Concent 33.9 32.0-36.0 g/dL Red Cell Distribution Width 13.6 11.0-15.5 % Platelet Count 218 130-400 K/uL Mean Platelet Volume 11.3 H 7.5-10.5 fL Immature Granulocyte % (Auto) 0.7 0-1 % Neutrophils (%) (Auto) 75.9 40.0-77.0 % Lymphocytes (%) (Auto) 12.0 L 21.0-51.0 % Monocytes (%) (Auto) 10.8 3.0-13.0 % Eosinophils (%) (Auto) 0.1 0.0-8.0 % Basophils (%) (Auto) 0.5 0.0-5.0 % Neutrophils # (Auto) 6.6 1.8-7.7 K/uL Lymphocytes # (Auto) 1.0 1.0-4.8 K/uL Monocytes # (Auto) 0.9 0.1-1.0 K/uL Eosinophils # (Auto) 0.01 0.00-0.70 K/uL Basophils # (Auto) 0.04 0.00-0.20 K/uL Absolute Immature Granulocyte (auto 0.06 0-1 K/uL Nucleated Red Blood Cells 0.0 0.0-0.19 % Chemistry Labs: Test 11/19/24 03:54 Range/Units Sodium Level 135 L 136-145 mmol/L Potassium Level 4.2 3.5-5.1 mmol/L Chloride Level 99 L 101-111 mmol/L Carbon Dioxide Level 25 21-32 mmol/L Blood Urea Nitrogen 25 H 7-18 mg/dL Creatinine 0.9 0.5-1.0 mg/dL Glomerular Filtration Rate Calc 65 >90 mL/min Random Glucose 147 H 70-105 mg/dL Lactic Acid Level 2.2 0.8-2.5 mmol/L Total Calcium 8.5 8.5-10.1 mg/dL Total Creatine Kinase 73 # 21-232 U/L Troponin I High Sensitivity 20.1 4-50 ng/L B-Type Natriuretic Peptide 804 H 0-100 pg/mL DIAGNOSTICS / RADIOLOGY RESULTS: REASON: Dyspnea/SOB ORDERING PHYSICIAN: KAUSHAL NICHOLS MD PROCEDURE: CXR1VW - CHEST 1VW CHEST 1VW REASON: Dyspnea/SOB COMPARISON: 07/30/2024 FINDINGS: There is patchy infiltrate or atelectasis in the medial left lung base. Lungs are otherwise clear. Heart size is normal with no vascular congestion. Mediastinum and bony thorax appear unremarkable. IMPRESSION: 1. Patchy infiltrate or atelectasis medial left lung base. PLAN NEURO: Minimize central acting medications as possible. Fall Precautions. Well lighted room through the day and minimize interruptions through the night to prevent acute delirium. PULMONARY: Supplemental 02 as needed Titrate Fio2 to keep Spo2 > or = 90% DuoNebs and CPT as needed IS hourly while awake for pulmonary hygiene Out of bed to chair as tolerated VAP Bundle BIPAP as needed CARDIOVASCULAR: Follow hemodynamics. Titrate vasopressor to keep MAP >65 or systolic blood pressure >95mmHg DRIPS: NA LINES: PIV GI & NUTRITION: Continue nutritional support Aspirations precautions Prokinetic agents and laxatives as needed KIDNEYS & ELECTROLYTES: Strict monitoring of intake and output Daily weights Avoid nephrotoxic agents Monitor electrolytes and replace as needed Goal urine output of 30mL/hr or 0.5mL/kg/hr ENDOCRINE: Maintain blood glucose between 100-180 at all times. Insulin sliding scale for blood glucose management INFECTIOUS DISEASE: Trend temperature. Aguilar-culture if febrile. Micro: Urine Blood Sputum Antibiotics: HAP coverage HEMATOLOGY & COAGULATION: Monitor H&H. Keep Hgb > 7 Transfuse 1 unit of PRBC for Hgb < 7 Transfuse 1 pack of platelets of platelets < 20, 000 Watch for any signs and symptoms of bleeding SKIN: Pressure ulcer prevention per facility protocol Rehab: PT/OT Prophylaxis: GI: Pepcid DVT: Lovenox Code Status: Full Resuscitation Disposition: PCCU Other: Total patient care time exceeds 35 minutes excluding all procedures. Case was discussed and seen with my supervising physician. The above plan was formulated and agreed upon. ERIN MCKEON [facility] Nov 19, 2024 07:46
[2024-11-19] MEDS: acetylCYSTeine 20% 200MG/ML 4ML VIAL ONE (08:16)
[2024-11-19] MEDS: IpraTROPium/alBUTERol SULFATE 3 ML SOLUTION IH ONE (08:16)
[2024-11-19] MEDS: ZOSYN 3.375GM +NS 50ML IV SCH (08:29)
[2024-11-19] MEDS: PANTOPrazole 40 MG/VIAL IVP SCH (08:29)
--- NOTE | 2024-11-19 08:38 | EKG ---
[facility] Test Date: 2024-11-19 Test Time: 03:11:24 Pat Name: STONEY STRANGE Department: [facility] Room: 229 Gender: F Milled [employer]ker: [id number] [phone] [id number] Requested By: KAUSHAL NICHOLS Order Number: [id number] Reading MD: Levar Bustos Measurements Intervals [place] Rate: 118 P: 43 [place]: 140 QRS: 30 QRSD: 69 T: 15 QT: 340 QTc: 475 Interpretive Statements Sinus tachycardia Multiple premature complexes, vent & supraven Compared to ECG 07/28/2024 21:36:39 Sinus rhythm no longer present Electronically Signed On 11-19-2024 21:23:45 [employer]PERINTEND[employer] by Levar Bustos Please click the below link to view image of tracing.
[2024-11-19] MEDS: ENOXAPARIN SODIUM 40 MG/0.4 ML SYRINGE SQ SCH (08:41)
--- NOTE | 2024-11-19 09:07 | HMCIMG ---
CHEST 1VW REASON: Dyspnea/SOB COMPARISON: 07/30/2024 FINDINGS: There is patchy infiltrate or atelectasis in the medial left lung base. Lungs are otherwise clear. Heart size is normal with no vascular congestion. Mediastinum and bony thorax appear unremarkable. IMPRESSION: 1. Patchy infiltrate or atelectasis medial left lung base.
[2024-11-19] MEDS ORDERED: LEVE100S7 PEG (09:54)
[2024-11-19] MEDS ORDERED: FAMO-136 PEG (09:54)
[2024-11-19] MEDS ORDERED: ASPI-1197 PEG (09:54)
[2024-11-19] MEDS ORDERED: FURO20TA4 PO (09:54)
[2024-11-19] MEDS: acetylCYSTeine 20% 200MG/ML 4ML VIAL IH SCH (11:18)
[2024-11-19] MEDS: IpraTROPium/alBUTERol SULFATE 3 ML SOLUTION IH SCH (11:18)
[2024-11-19] MEDS ORDERED: acetaMINOPHEN 325 MG TAB PO PRN (12:30)
[2024-11-19] MEDS ORDERED: PHARMACY COMMUNICATION 1 EACH EACH MISC SCH (14:00)
--- NOTE | 2024-11-19 15:32 | HP ---
[facility]ISTORY [facility] PHYS[facility] Date of Service: Nov 19, 2024 Time of Service: 15:24 HISTORY OF PRESENT ILLNESS: [79-year-old female a long-term resident with past medical history of chronic dysphagia, seizure disorder, peg tube dependent, heart failure who was brought to the ED via EMS due to patient's having shortness of breaths. Patient is nonverbal, she was found in the long-term with O2 saturation in the 80s, patient is also tachypneic. In the ED, her initial vital signs showed temperature of 99.7, pulse 128, respiratory rate 28, blood pressure 90/64, O2 sat 90% on room air. Patient is having labored breathing. Chest x-ray was done which showed patchy infiltrate or atelectasis to the medial lung base. Patient was started with high-flow nasal cannula FiO2 which improved her oxygen saturation to 99%. Patient was started with IV Zosyn and was sent to ICU for close monitoring.] REVIEW OF SYSTEMS CONSTITUTIONAL: Denies fevers, chills, or night sweats. No unintentional weight loss reported. NEUROLOGICAL: Denies headache, amaurosis fugax, motor weakness, sensory deficit, vertigo/spinning sensation, gait abnormalities, or tremors. ENT: No hearing loss, otalgia, otorrhea, rhinitis, rhinorrhea, hoarseness, or sore throat. CARDIOVASCULAR: Denies any exertional angina, dyspnea on exertion, orthopnea, paroxysmal nocturnal dyspnea, palpitations, life-threatening arrhythmias, claudication. PULMONARY: Denies any shortness of breath, cough, phlegm/sputum, hemoptysis, pleuritic chest pain. SLEEP: Denies morning headaches, daytime somnolence or napping. Denies difficulty falling asleep, staying asleep, waking from sleep. Denies knowledge of snoring. GASTROINTESTINAL: Denies any type of dysphagia to either liquids or solids. Denies nausea, vomiting, pyrosis, early satiety, abdominal pain, diarrhea, constipation, or changes in stool consistency or caliber. Denies coffee-ground emesis, hematemesis, hematochezia, or melanotic stools. GENITOURINARY: Denies frequency, urgency, nocturia, hematuria or incontinence (Storage/Irritative symptoms.) Low urinary stream, straining to void, urinary intermittency or hesitancy, splitting of the voiding stream, terminal dribbling. ENDOCRINOLOGIC: Denies polyuria, polydipsia, polyphagia or heat/cold intolerances. HEMATOLOGIC: Denies thrombophilia/previous clots, or coagulopathy/bleeding disorders. ONCOLOGIC: Denies personal history of malignancy. DERMATOLOGIC: Denies rashes or pruritus. PSYCHIATRIC: Denies any suicidal or homicidal ideation. Denies hallucinations. PAST MEDICAL HISTORY: [Diabetes mellitus type 2, history of GERD, history of CVA, history of subdural hematoma, intracranial. ] PAST SURGICAL HISTORY: [ intervention done on carotid artery, PEG tube placement ] PAST SOCIAL HISTORY: [No smoking. No alcohol. No drug use. The patient currently is residing in a around [facility]. She is totally dependent on her ADLs and IADLs ] FAMILY HISTORY: [Noncontributory ] Coded Allergies: No Allergy Information Available (Verified Allergy, Unknown, 04/21/21) No Known Drug Allergies (Unverified Allergy, Unknown, 05/20/23) PHYSICAL EXAM GENERAL APPEARANCE: The patient is awake, alert, and oriented, in no acute cardiopulmonary distress. NEUROLOGICAL: Cranial nerves II-XII grossly intact. Motor is 5/5 in bilateral upper and lower extremities proximal to distal. No sensory deficits. HEENT: Face is symmetric. Pupils are equal and reactive. Extraocular movements are intact. NECK: Supple. No JVD. No thyromegaly. No submental, submandibular, pre-/po stauricular, occipital or supraclavicular lymphadenopathy. CHEST: Normal chest expansion. No Telemetry. LUNGS: Absence of any rales, rhonchi or any wheezing. CARDIOVASCULAR: Regular. S1 and S2 normal. No appreciable rubs, murmurs or gallops. ABDOMEN: Soft, nontender, and nondistended. There is no rebound, voluntary guarding, or rigidity. : Deferred. No [place]. EXTREMITIES: Non-edematous and not cyanotic. No clubbing. Good capillary refill. SKIN: No skin breakdown. Vital Sign (Last 24 Hours) 11/19/24 11/19/24 12:00 14:00 Temp 97.2 Pulse 81 Resp 20 B/P (MAP) 120/57 Pulse Ox 94 O2 Delivery N/C High Flow System O2 Flow Rate 20.0 FiO2 30 LABS: Laboratory: Test 11/19/24 07:33 11/19/24 04:19 11/19/24 03:54 11/19/24 03:41 Range/Units Lactic Acid Level 2.6 H 0.8-2.5 mmol/L Blood Gas Specimen Type Arterial Arterial Blood pH 7.425 7.350-7.450 Arterial Blood Partial Pressure CO2 41 32-45 mmHg Arterial Blood Partial Pressure O2 106.6 83.0-108.0 mmHg Arterial Blood HCO3 26.0 21.0-28.0 mmol/L Arterial Blood Oxygen Saturation 97.9 94.0-98.0 % Arterial Blood Base Excess 1.5 -2.0-3.0 mmol/L Hemoglobin (Blood Gas) 13.6 12.0-16.0 g/dL Sodium (Blood Gas) 135 L 136-145 MMOL/L Bedside Potassium (Blood Gas) 3.8 3.4-4.5 MMOL/L Bedside Chloride (Blood Gas) 97 L 98-107 MMOL/L Bedside Glucose (Blood Gas) 133 H 65-95 MG/DL Bedside Ionized Calcium (Blood Gas) 1.11 L 1.15-1.33 MMOL/L Bedside Lactic Acid (Blood Gas) 1.94 H 0.36-0.75 MMOL/L Blood Gas Temperature 37.0 35.5-37.0 CELSIUS Blood Gas Flow-by 30.00 H 0.00-15.00 L/min Blood Gas Vent Mode HFNC ROOM AIR FiO2 40.0 % Blood Gas Specimen Comment RR RN White Blood Count 8.7 4.8-10.8 K/uL Red Blood Count 4.17 4.00-5.50 MIL/uL Hemoglobin 12.8 12.0-16.0 g/dL Hematocrit 37.8 36-48 % Mean Corpuscular Volume 90.6 79-99 fL Mean Corpuscular Hemoglobin 30.7 27.0-33.0 pg Mean Corpuscular Hemoglobin Concent 33.9 32.0-36.0 g/dL Red Cell Distribution Width 13.6 11.0-15.5 % Platelet Count 218 130-400 K/uL Mean Platelet Volume 11.3 H 7.5-10.5 fL Immature Granulocyte % (Auto) 0.7 0-1 % Neutrophils (%) (Auto) 75.9 40.0-77.0 % Lymphocytes (%) (Auto) 12.0 L 21.0-51.0 % Monocytes (%) (Auto) 10.8 3.0-13.0 % Eosinophils (%) (Auto) 0.1 0.0-8.0 % Basophils (%) (Auto) 0.5 0.0-5.0 % Neutrophils # (Auto) 6.6 1.8-7.7 K/uL Lymphocytes # (Auto) 1.0 1.0-4.8 K/uL Monocytes # (Auto) 0.9 0.1-1.0 K/uL Eosinophils # (Auto) 0.01 0.00-0.70 K/uL Basophils # (Auto) 0.04 0.00-0.20 K/uL Absolute Immature Granulocyte (auto 0.06 0-1 K/uL Nucleated Red Blood Cells 0.0 0.0-0.19 % Sodium Level 135 L 136-145 mmol/L Potassium Level 4.2 3.5-5.1 mmol/L Chloride Level 99 L 101-111 mmol/L Carbon Dioxide Level 25 21-32 mmol/L Blood Urea Nitrogen 25 H 7-18 mg/dL Creatinine 0.9 0.5-1.0 mg/dL Glomerular Filtration Rate Calc 65 >90 mL/min Random Glucose 147 H 70-105 mg/dL Total Calcium 8.5 8.5-10.1 mg/dL Total Creatine Kinase 73 # 21-232 U/L Troponin I High Sensitivity 20.1 4-50 ng/L B-Type Natriuretic Peptide 804 H 0-100 pg/mL Influenza Type A Antigen Negative For Type A NEGATIVE Influenza Type B Antigen Negative For Type B NEGATIVE SARS-CoV-2, RNA, NAAT NEGATIVE SARS CoV-2 NEGATIVE Current Medications Medications (Trade) Dose Ordered Sig/Xi Route PRN Reason Start Time Stop Time Status Last Admin Dose Admin Acetaminophen (TYLenol 325MG TAB) 650 mg Q6H PRN PO MILD PAIN (1-3) 11/19/24 12:30 12/19/24 12:29 Acetylcysteine (MUComyst 20% 4ML) 400mg = 2ml [id number] 11/19/24 12:00 12/19/24 11:59 11/19/24 11:18 800 MG Albuterol (DUOneb) 1 UDVIAL [id number] 11/19/24 12:00 12/19/24 11:59 11/19/24 11:18 1 UDVIAL Dexmedetomidine/ Sodium Chloride (PRECEdex 200MCG/ 50ML-NS) 200 mcg PROTOCOL IV 11/19/24 04:30 11/19/24 04:03 DC Dexmedetomidine/ Sodium Chloride (PRECEdex 400MCG/ 100ML-NS) 400 mcg PROTOCOL IV 11/19/24 04:00 11/19/24 04:01 DC Dexmedetomidine/ Sodium Chloride (PRECEdex 400MCG/ 100ML-NS) 400 mcg PROTOCOL IV 11/19/24 04:30 12/19/24 04:29 11/19/24 04:17 400 MCG Dexmedetomidine/ Sodium Chloride (PRECEdex 400MCG/ 100ML-NS) 400 mcg PROTOCOL IV 11/19/24 04:30 11/19/24 07:49 DC Enoxaparin Sodium (Lovenox) 40 mg DAILY SQ 11/19/24 09:00 12/19/24 08:59 11/19/24 08:41 40 MG Pantoprazole Sodium (PROTonix 40MG INJ) 40 mg DAILY IVP 11/19/24 09:00 12/19/24 08:59 11/19/24 08:29 40 MG Pharmacy Profile Note (Lace Assessment) 1 each AD MISC 11/19/24 14:00 11/19/24 13:58 DC Piperacillin Sod/ Tazobactam Sod (Zosyn 3.375gm+NS 50ml) 3.375 gm Q8H IV 11/19/24 08:00 11/29/24 07:59 11/19/24 15:13 3.375 GM DIAGNOSTICS / RADIOLOGY: [ ] ASSESSMENT: [Acute hypoxemic respiratory failure, POA Sepsis, POA Healthcare associated pneumonia, POA Hyponatremia, POA Dehydration, POA Acute on chronic diastolic Congestive heart failure exacerbation, POA Elevated BNP, POA Hypotension, POA Elevated lactic acid, POA ] PLAN: [Patient will be admitted in ICU We will continue with IV antibiotics Continue with gentle IV fluids Critical Care team consulted for critical care management Patient was started with Precedex per protocol We will start patient on diuretics with Lasix 40 mg IV b.i.d. We will repeat labs tomorrow Request medications from the long-term GI and DVT prophylaxis We will repeat chest x-ray in the morning She will continue NPO for now Patient is a full code Case discussed with Dr. Hoffman, above plan was formulated ADVANCED CARE PLANNING 1. Which of the following were discussed? Hospice Care - Yes / No Therapeutic options - Yes / No Advance Directives - Yes / No Other discussions - 2. Discussed with who? Son 3. Voluntary nature of this service was explained to the patient? Yes / No 4. Amount of time spent - ____30 mins___ 5. Reviewed by Physician? (if this service was performed by NPP) Yes / No ] ATTESTATION BY PHYSICIAN I have seen and examined the patient. I reviewed the documentation, medical decision making, and treatment plan as noted by the mid-level provider above. I agree with the findings and plan of care. KIKA HOFFMAN MD, JANICE B [facility] Nov 19, 2024 15:32
[2024-11-19] MEDS: INSULIN humuLIN R 100 UNIT/ML 3ML SQ SCH (16:55)
[2024-11-19] MEDS ORDERED: DEXTROSE 50%-WATER 50 ML DISP.SYRIN IV PRN (17:00)
[2024-11-19] MEDS ORDERED: GLUCAGON 1MG KIT 1 MG ML IM PRN (17:00)
[2024-11-20] VITALS (16 sets, daily range): BP systolic 120–146; BP diastolic 69–86; PULSE 77–91; RESP 16–20; TEMP 97.4–98.9; O2SAT 94–100
[2024-11-20 03:19] LABS: ABG BASE EXCESS 3.4 mmol/L (-2.0-3.0); ABG HCO3 26.6 mmol/L (21.0-28.0); ABG OXYGEN SATURATION 94.1 % (94.0-98.0); ABG PCO2 36 mmHg (32-45); ABG PH 7.486 (7.350-7.450); CARBON MONOXIDE 0.9 % (0.5-1.5); DEVICE COMMENT RR RN; HHb 5.8; PO2, ARTERIAL BG 69.4 mmHg (83.0-108.0); VENT MODE, BG RA (ROOM AIR)
[2024-11-20 04:04] LABS: HEMATOCRIT 38.9 % (36-48); MEAN CORPUSCULAR HEMOGLOBIN 30.7 pg (27.0-33.0); MEAN CORPUSCULAR HGB CONC 33.2 g/dL (32.0-36.0); MEAN CORPUSCULAR VOLUME 92.6 fL (79-99); RED BLOOD CELL COUNT(AUTO) 4.2 MIL/uL (4.00-5.50); RED CELL DISTRIBUTION WIDTH 13.5 % (11.0-15.5); WHITE BLOOD COUNT (AUTO) 6.8 K/uL (4.8-10.8)
[2024-11-20 04:35] LABS: ALBUMIN 2.7 g/dL (3.5-5.0); BILIRUBIN,TOTAL 0.6 mg/dL (0.2-1.0); MAGNESIUM 2.6 mg/dL (1.80-2.40); TOTAL PROTEIN, SERUM 7.1 g/dL (6.0-8.3)
--- NOTE | 2024-11-20 07:31 | NUR ---
JAYDE Planning This CM spoke with patient's son, Faisal Humphries who states is satisfied with the care at [facility] and would like for his mom to return once ready. Son signed OSIEL/CL. CM to continue to follow. Addendum: 11/20/24 at 0732 by BERNA WILDER CM Amended: Links added.
--- NOTE | 2024-11-20 09:46 | CONS ---
[facility] Cardiology Consultation Note Cardiology consultation November 20, 2024 Chief complaint: This is a 79-year-old female who was admitted with fever aspiration pneumonia and sepsis and was found to have an elevated BNP level of 804. History of present illness: The patient has had a stroke and subsequent the is nonverbal and has dysphagia. She is status post a PEG placement. Despite this she was hospitalized with aspiration pneumonia in the past. At the [facility] she was found to be febrile and tachypneic and was brought to hospital. X-ray showed patchy infiltrates consistent with pneumonia. Elevated BNP was noted. The patient had a 2D echocardiogram in July of 2024 which showed an ejecti on fraction of 50-55%. She had fnjdykeb-dc-rtadrs mitral stenosis and severe mitral annular calcification. [place] candidate for intervention on the mitral valve. Past medical history: Patient has a history of a left carotid stent placed in September 2013. She suffered a stroke in May of 2021 complicated by dysphagia and nonverbal status. A pigtail was placed at that time. Previous cardiac catheterization in April of 2014 showed nonobstructive disease. She has a history of hypertension dyslipidemia and as noted [id number]-ad-[id number] mitral stenosis. Review of systems: Not obtainable Allergies: Unknown Surgical history: In addition to her PEG placement and previous cardiac catheterization she had a replacement May of 2023. Medications: The patient is currently on insulin scale Lovenox pantoprazole and Zosyn antibiotic. Physical exam: Pressure is 140/70 heart rate is 80s the patient is afebrile. Currently I can see no elevation of the jugular venous pressure. Lungs reveal coarse bilateral rhonchi. Was 2/6 holosystolic murmur. She does have history of rxudbaja-sd-wsxpve mitral stenosis but a diastolic murmur was not audible over her breath sounds. Abdomen is soft extremities show no edema. She is nonverbal. Laboratory studies: White count 6.8 Hemoglobin 12.9 platelet count [id number] potassium 4.0 BUN21 creatinine 1.0. Estimated GFR of 57. Influenza a and B negative SARS antigen negative Chest x-ray: X-ray is a portable film. Heart size appears to be normal. Bilateral patchy infiltrates are noted. There is some elevation of the jugular venous pressure. No pneumothorax is present. Trachea is midline. Assessment: 1. Recurrent aspiration pneumonia and sepsis 2. Acute on chronic diastolic heart failure with LV ejection fraction of 50-55% and grade 1 diastolic left ventricular dysfunction by echo July 2024 3. Iwwkvinw-kb-zemgpi mitral stenosis with significant mitral annular calcification not felt to be a candidate for intervention 4. Carotid artery disease status post stenting September 2013 with subsequent stroke May 2021 5. Dysphagia status post PEG placement 6. Nonobstructive coronary artery disease and left heart catheterization April 2014 7. Hypertension 8. Dyslipidemia Plan: Continue antibiotics for aspiration pneumonia. We will add low-dose beta dara for heart rate control as part of management for her mitral stenosis. Low-dose diuretic will be added to her regimen. We will monitor electrolytes while diuresing. Potassium protocol be instituted. Failure at this point appears to be mild and she can be converted to oral diuretics in 24-48 hours if stable. YULIET HERNANDEZ MD Nov 20, 2024 09:45
[2024-11-20] MEDS ORDERED: PoTASSium chloRIDE 20MEQ/100ML 100 ML IV PRN (10:00)
--- NOTE | 2024-11-20 12:41 | NUR ---
Nutrition consult per TF recs Reviewed labs, notes, and medications. Pt from [place], chronic dysphagia, PEG tube in place, IV fluids, IV abx, elevated bun 21, Cr WNL, hypermagnesemia 2.60 per chart review. Wt via bed scale, last BM 11/20/24, no edema, mild muscle loss, no wounds per nursing. Mild muscle loss may be age related. Recommendations -Provide Jevity 1.5 @ 50 ml/hr x 22 hrs + 200 Q4H Provides: 1650 kcals, 70 gm pro, 2036 ml per day -If bolus provide: 5 cans of Jevity 1.5 (times: 0900,1400, 1900, 0000,0400) 30 ml before and after each feed -Monitor BM -If no BM >3 days consider stool softener -Monitor electrolytes -Replenish electrolytes per protocol -Monitor wts -Reweigh as able -Order Vit D, vit b12 labs to rule out deficiencies -Provide MVI QD -Recommend Pt to follow up with PCP -Monitor TF tolerance + need for TF adjustment -Monitor goals of care RD to follow + available for consult per protocol Addendum: 11/20/24 at [address] Amended: Links added.
--- NOTE | 2024-11-20 12:46 | NUR ---
[facility] Consult: Patient with low tu score, per primary nurse, patient with no open wounds. Addendum: 11/20/24 at 1247 by EMIL FOWLER RN RN/ Amended: Links added.
--- NOTE | 2024-11-20 15:33 | NUR ---
[facility] PER NORMAN WITH [facility], PATIENT WILL NOT REQUIRE A PASRR TO COME BACK. INFORMED THIS CM ANTICIPATES 24-48 HRS PATIENT SHOULD BE READY TO DC. PER NORMAN, ABLE TO ACCEPT PATIENT BACK. PATIENT IS BED BOUND AND WILL REQUIRE EMS. [facility] FORM COMPLETED AND PLACED IN CHART MINUS THE TRANSPORT DATE. Addendum: 11/20/24 at 1543 by BERNA WILDER Amended: Links added.
--- NOTE | 2024-11-20 16:22 | PN ---
[facility] PROGRESS NOTE Date of Service: Nov 20, 2024 Time of Service: 16:18 SUBJECTIVE: [ ] Patient has been seen and examined during rounding, no acute events overnight, patient nonverbal, BP 120/70, afebrile, saturating 100% 2 L nasal cannula. Patient getting IV antibiotics during my visit. Chest x-ray showing patchy infiltrate or atelectasis medial left lung base. Serology negative for influenza type a and B as well as SARS antigen. REVIEW OF SYSTEMS CONSTITUTIONAL: Denies fevers, chills, or night sweats. No unintentional weight loss reported. NEUROLOGICAL: Denies headache, amaurosis fugax, motor weakness, sensory deficit, vertigo/spinning sensation, gait abnormalities, or tremors. ENT: No hearing loss, otalgia, otorrhea, rhinitis, rhinorrhea, hoarseness, or sore throat. CARDIOVASCULAR: Denies any exertional angina, dyspnea on exertion, orthopnea, paroxysmal nocturnal dyspnea, palpitations, life-threatening arrhythmias, claudication. PULMONARY: Denies any shortness of breath, cough, phlegm/sputum, hemoptysis, pleuritic chest pain. SLEEP: Denies morning headaches, daytime somnolence or napping. Denies difficulty falling asleep, staying asleep, waking from sleep. Denies knowledge of snoring. GASTROINTESTINAL: Denies any type of dysphagia to either liquids or solids. Denies nausea, vomiting, pyrosis, early satiety, abdominal pain, diarrhea, constipation, or changes in stool consistency or caliber. Denies coffee-ground emesis, hematemesis, hematochezia, or melanotic stools. GENITOURINARY: Denies frequency, urgency, nocturia, hematuria or incontinence (Storage/Irritative symptoms.) Low urinary stream, straining to void, urinary intermittency or hesitancy, splitting of the voiding stream, terminal dribbling. ENDOCRINOLOGIC: Denies polyuria, polydipsia, polyphagia or heat/cold intolerances. HEMATOLOGIC: Denies thrombophilia/previous clots, or coagulopathy/bleeding disorders. ONCOLOGIC: Denies personal history of malignancy. DERMATOLOGIC: Denies rashes or pruritus. PSYCHIATRIC: Denies any suicidal or homicidal ideation. Denies hallucinations. PHYSICAL EXAM GENERAL APPEARANCE: The patient is awake, alert, and oriented, in no acute cardiopulmonary distress. NEUROLOGICAL: Cranial nerves II-XII grossly intact. Motor is 5/5 in bilateral upper and lower extremities proximal to distal. No sensory deficits. HEENT: Face is symmetric. Pupils are equal and reactive. Extraocular movements are intact. NECK: Supple. No JVD. No thyromegaly. No submental, submandibular, pre- /postauricular, occipital or supraclavicular lymphadenopathy. CHEST: Normal chest expansion. No Telemetry. LUNGS: Absence of any rales, rhonchi or any wheezing. CARDIOVASCULAR: Regular. S1 and S2 normal. No appreciable rubs, murmurs or gallops. ABDOMEN: Soft, nontender, and nondistended. There is no rebound, voluntary guarding, or rigidity. : Deferred. No [place]. EXTREMITIES: Non-edematous and not cyanotic. No clubbing. Good capillary refill. SKIN: No skin breakdown. Vital Signs (last 8hr) Date Time Temp Pulse Resp B/P (MAP) Pulse Ox O2 Delivery O2 Flow Rate FiO2 11/20/24 16:07 97.5 78 16 120/70 100 Nasal Cannula 2.0 11/20/24 11:43 99.0 91 18 140/69 97 Nasal Cannula 2.0 11/20/24 11:30 80 18 N/Cannula Low lpm 2.0 28 11/20/24 11:27 80 18 LABS: Laboratory: Test 11/20/24 15:55 11/20/24 03:49 11/20/24 03:17 11/19/24 07:33 Range/Units Whole Blood Glucose 98 70-110 MG/DL White Blood Count 6.8 4.8-10.8 K/uL Red Blood Count 4.20 4.00-5.50 MIL/uL Hemoglobin 12.9 12.0-16.0 g/dL Hematocrit 38.9 36-48 % Mean Corpuscular Volume 92.6 79-99 fL Mean Corpuscular Hemoglobin 30.7 27.0-33.0 pg Mean Corpuscular Hemoglobin Concent 33.2 32.0-36.0 g/dL Red Cell Distribution Width 13.5 11.0-15.5 % Platelet Count 187 130-400 K/uL Mean Platelet Volume 11.1 H 7.5-10.5 fL Nucleated Red Blood Cells 0.0 0.0-0.19 % Sodium Level 141 136-145 mmol/L Potassium Level 4.0 3.5-5.1 mmol/L Chloride Level 102 101-111 mmol/L Carbon Dioxide Level 30 21-32 mmol/L Blood Urea Nitrogen 21 H 7-18 mg/dL Creatinine 1.0 0.5-1.0 mg/dL Glomerular Filtration Rate Calc 57 >90 mL/min Random Glucose 105 70-105 mg/dL Total Calcium 8.6 8.5-10.1 mg/dL Magnesium Level 2.60 H 1.80-2.40 mg/dL Total Bilirubin 0.6 0.2-1.0 mg/dL Aspartate Amino Transf (AST/SGOT) 34 10-37 U/L Alanine Aminotransferase (ALT/SGPT) 19 12-78 U/L Alkaline Phosphatase 82 50-136 U/L Total Protein 7.1 6.0-8.3 g/dL Albumin 2.7 L 3.5-5.0 g/dL Vitamin B12 Level 1458 H 193-986 pg/mL Blood Gas Specimen Type Arterial Arterial Blood pH 7.486 H 7.350-7.450 Arterial Blood Partial Pressure CO2 36 32-45 mmHg Arterial Blood Partial Pressure O2 69.4 L 83.0-108.0 mmHg Arterial Blood HCO3 26.6 21.0-28.0 mmol/L Arterial Blood Oxygen Saturation 94.1 94.0-98.0 % Arterial Blood Base Excess 3.4 H -2.0-3.0 mmol/L Hemoglobin (Blood Gas) 13.5 12.0-16.0 g/dL Sodium (Blood Gas) 138 136-145 MMOL/L Bedside Potassium (Blood Gas) 3.6 3.4-4.5 MMOL/L Bedside Chloride (Blood Gas) 101 98-107 MMOL/L Bedside Glucose (Blood Gas) 100 H 65-95 MG/DL Bedside Ionized Calcium (Blood Gas) 1.09 L 1.15-1.33 MMOL/L Bedside Lactic Acid (Blood Gas) 1.09 H 0.36-0.75 MMOL/L Blood Gas Temperature 37.0 35.5-37.0 CELSIUS Blood Gas Vent Mode RA ROOM AIR FiO2 21.0 % Blood Gas Specimen Comment RR RN Lactic Acid Level 2.6 H 0.8-2.5 mmol/L Test 11/19/24 04:19 11/19/24 03:54 11/19/24 03:41 Range/Units Blood Gas Flow-by 30.00 H 0.00-15.00 L/min Immature Granulocyte % (Auto) 0.7 0-1 % Neutrophils (%) (Auto) 75.9 40.0-77.0 % Lymphocytes (%) (Auto) 12.0 L 21.0-51.0 % Monocytes (%) (Auto) 10.8 3.0-13.0 % Eosinophils (%) (Auto) 0.1 0.0-8.0 % Basophils (%) (Auto) 0.5 0.0-5.0 % Neutrophils # (Auto) 6.6 1.8-7.7 K/uL Lymphocytes # (Auto) 1.0 1.0-4.8 K/uL Monocytes # (Auto) 0.9 0.1-1.0 K/uL Eosinophils # (Auto) 0.01 0.00-0.70 K/uL Basophils # (Auto) 0.04 0.00-0.20 K/uL Absolute Immature Granulocyte (auto 0.06 0-1 K/uL Total Creatine Kinase 73 # 21-232 U/L Troponin I High Sensitivity 20.1 4-50 ng/L B-Type Natriuretic Peptide 804 H 0-100 pg/mL Influenza Type A Antigen Negative For Type A NEGATIVE Influenza Type B Antigen Negative For Type B NEGATIVE SARS-CoV-2, RNA, NAAT NEGATIVE SARS CoV-2 NEGATIVE Current Medications Medications (Trade) Dose Ordered Sig/Xi Route PRN Reason Start Time Stop Time Status Last Admin Dose Admin Acetaminophen (TYLenol 325MG TAB) 650 mg Q6H PRN PO MILD PAIN (1-3) 11/19/24 12:30 12/19/24 12:29 Acetylcysteine (MUComyst 20% 4ML) 400mg = 2ml [id number] IH 11/19/24 12:00 12/19/24 11:59 11/20/24 11:27 200 MG Albuterol (DUOneb) 1 UDVIAL [id number] IH 11/19/24 12:00 12/19/24 11:59 11/20/24 11:27 1 UDVIAL Dexmedetomidine/ Sodium Chloride (PRECEdex 200MCG/ 50ML-NS) 200 mcg PROTOCOL IV 11/19/24 04:30 11/19/24 04:03 DC Dexmedetomidine/ Sodium Chloride (PRECEdex 400MCG/ 100ML-NS) 400 mcg PROTOCOL IV 11/19/24 04:00 11/19/24 04:01 DC Dexmedetomidine/ Sodium Chloride (PRECEdex 400MCG/ 100ML-NS) 400 mcg PROTOCOL IV 11/19/24 04:30 11/19/24 07:49 DC Dexmedetomidine/ Sodium Chloride (PRECEdex 400MCG/ 100ML-NS) 400 mcg PROTOCOL IV 11/19/24 04:30 11/19/24 16:10 DC 11/19/24 04:17 400 MCG Dextrose (D50w) 50 ml AD PRN IV HYPOGLYCEMIA PROTOCOL 11/19/24 17:00 12/19/24 16:59 Enoxaparin Sodium (Lovenox) 40 mg DAILY SQ 11/19/24 09:00 12/19/24 08:59 11/20/24 07:52 40 MG Furosemide (LASix 20MG VIAL) 20 mg Q12H IV 11/20/24 10:00 12/20/24 09:59 Glucagon (Glucagon 1mg Kit) 1 mg AD PRN IM HYPOGLYCEMIA PROTOCOL 11/19/24 17:00 12/19/24 16:59 Insulin Human Regular (humuLIN R 100 UNIT/ML 3ML) INSULIN SLIDING SCAL... Q6H6 SQ 11/19/24 18:00 12/19/24 17:59 Metoprolol Tartrate (loprESSOR) 12.5 mg BID PO 11/20/24 21:00 12/20/24 20:59 Pantoprazole Sodium (PROTonix 40MG INJ) 40 mg DAILY IVP 11/19/24 09:00 12/19/24 08:59 11/20/24 07:52 40 MG Pharmacy Profile Note (Lace Assessment) 1 each AD MISC 11/19/24 14:00 11/19/24 13:58 DC Piperacillin Sod/ Tazobactam Sod (Zosyn 3.375gm+NS 50ml) 3.375 gm Q8H IV 11/19/24 08:00 11/29/24 07:59 11/20/24 07:52 3.375 GM Potassium Chloride 100 ml @ 50 mls/hr AD PRN IV POTASSIUM PROTOCOL 11/20/24 10:00 12/20/24 09:59 DIAGNOSTICS / RADIOLOGY: [ ] CHEST 1VW REASON: Dyspnea/SOB COMPARISON: 07/30/2024 FINDINGS: There is patchy infiltrate or atelectasis in the medial left lung base. Lungs are otherwise clear. Heart size is normal with no vascular congestion. Mediastinum and bony thorax appear unremarkable. IMPRESSION: 1. Patchy infiltrate or atelectasis medial left lung base. ASSESSMENT: [Acute hypoxemic respiratory failure, POA Sepsis, POA Healthcare associated pneumonia, POA Hyponatremia, POA Dehydration, POA Acute on chronic diastolic Congestive heart failure exacerbation, POA Elevated BNP, POA Hypotension, POA Elevated lactic acid, POA ] PLAN: [Patient will be admitted in ICU We will continue with IV antibiotics Continue with gentle IV fluids Critical Care team consulted for critical care management Continue patient on diuretics with Lasix 40 mg IV b.i.d. We will repeat labs tomorrow Request medications from the halfway [facility] and DVT prophylaxis We will repeat chest x-ray in the morning Disposition: Anticipate discharge back to [facility] facility in the next 24 hours if medically stable Total visit time spent greater than 30 minutes. KIKA HOFFMAN MD Nov 20, 2024 16:22
--- NOTE | 2024-11-20 16:31 | PN ---
[facility] PROGRESS NOTE Date Patient Seen: Nov 20, 2024 Time of Visit: 16:27 Supervising Physician: Dr Fco Putnam Primary Care Physician: Dr. Harrison Krishnamurthy Outpatient Specialists: [facility] Inpatient Consults: Dr. Putnam PROBLEM LIST: Acute hypoxic respiratory failure Health care acquired pneumonia likely aspiration event Sepsis without organ damage Lactic acidosis Hyponatremia- hypovolemic Dysphagia status post PEG tube placement History of CVA, aphasia, dysphagia post PEG tube placement, seizures, heart failure, CAD, GERD, diabetes mellitus, GERD Possible PE , need to rule out INTERVAL HISTORY: HPI - This is a 79 year old female with past medical history of CVA, aphasia, dysphagia post PEG, seizures, heart failure, CAD, diabetes mellitus, GERD, hypertension who came in the hospital from assisted facility with complaint of hypoxia. [facility] is consulted for respiratory failure and we will care management. Patient's information was obtained from chart review and patient's son in ED. According to the son, patient was having shortness of breath. Patient's son reported that the patient was admitted last time with the aspiration pneumonia. She was reported to have hypoxia with saturation oxygen 80%. For this reason patient was brought to the hospital procalcitonin for aspiration pneumonia. In ED patient was found to have patchy infiltrates in the left base. I asked patient's son at the bedside in ED , he reported to continue with aggressive care so full code status. 11/20/2024 - Patient is seen at bedside , non vocal and appears confused , wakes up with painful stimulation and is going back to sleep . patients labs Sodium 141, K 4.0, Cl 102, HCO3 30, BUN 21,Cr 1.0, AST 34, ALT 19, Albumin 2.7, Blood gas shows Ph - 7.486, PCO2 - 36, PO2 - 69.4, Lactic acid - 1.09. Patient's hematology shows WBC - 6.8, Hgb - 12.9 . Patient is hemodynamically stable with heart rate of- 78 , temparature - 97.5 , respiratory rate of 16, blood pressure of 120/70, saturating at 100% on 2L O2 NC. Plan to rule out PE due to sudden onset of respiratory distress. plan to order D dimer and lower extremity venous doppler . REVIEW OF SYSTEMS: 12 point ROS reviewed with patient. Pertinent positives mentioned above. Otherwise negative. PHYSICAL EXAM: GENERAL: awake, aphasic. bedbound HEENT: EOMI, Sclera non icteric, moist mucosa NECK: Supple, no JVD, trachea midline LUNGS: Clear breath sounds bilaterally. No wheezes HEART: Regular rate and rhythm. Normal S1 and S2, without murmurs ABD: Abdomen soft, nontender. Bowel sounds present EXT: No clubbing cyanosis or edema NEURO: not following command Vital Signs (last 8hr) Date Time Temp Pulse Resp B/P (MAP) Pulse Ox O2 Delivery O2 Flow Rate FiO2 11/20/24 16:07 97.5 78 16 120/70 100 Nasal Cannula 2.0 11/20/24 11:43 99.0 91 18 140/69 97 Nasal Cannula 2.0 11/20/24 11:30 80 18 N/Cannula Low lpm 2.0 28 11/20/24 11:27 80 18 LABS: Hematology Labs: Test 11/20/24 03:49 11/19/24 03:54 Range/Units White Blood Count 6.8 4.8-10.8 K/uL Red Blood Count 4.20 4.00-5.50 MIL/uL Hemoglobin 12.9 12.0-16.0 g/dL Hematocrit 38.9 36-48 % Mean Corpuscular Volume 92.6 79-99 fL Mean Corpuscular Hemoglobin 30.7 27.0-33.0 pg Mean Corpuscular Hemoglobin Concent 33.2 32.0-36.0 g/dL Red Cell Distribution Width 13.5 11.0-15.5 % Platelet Count 187 130-400 K/uL Mean Platelet Volume 11.1 H 7.5-10.5 fL Nucleated Red Blood Cells 0.0 0.0-0.19 % Immature Granulocyte % (Auto) 0.7 0-1 % Neutrophils (%) (Auto) 75.9 40.0-77.0 % Lymphocytes (%) (Auto) 12.0 L 21.0-51.0 % Monocytes (%) (Auto) 10.8 3.0-13.0 % Eosinophils (%) (Auto) 0.1 0.0-8.0 % Basophils (%) (Auto) 0.5 0.0-5.0 % Neutrophils # (Auto) 6.6 1.8-7.7 K/uL Lymphocytes # (Auto) 1.0 1.0-4.8 K/uL Monocytes # (Auto) 0.9 0.1-1.0 K/uL Eosinophils # (Auto) 0.01 0.00-0.70 K/uL Basophils # (Auto) 0.04 0.00-0.20 K/uL Absolute Immature Granulocyte (auto 0.06 0-1 K/uL Chemistry Labs: Test 11/20/24 15:55 11/20/24 03:49 11/19/24 07:33 11/19/24 03:54 Range/Units Whole Blood Glucose 98 70-110 MG/DL Sodium Level 141 136-145 mmol/L Potassium Level 4.0 3.5-5.1 mmol/L Chloride Level 102 101-111 mmol/L Carbon Dioxide Level 30 21-32 mmol/L Blood Urea Nitrogen 21 H 7-18 mg/dL Creatinine 1.0 0.5-1.0 mg/dL Glomerular Filtration Rate Calc 57 >90 mL/min Random Glucose 105 70-105 mg/dL Total Calcium 8.6 8.5-10.1 mg/dL Magnesium Level 2.60 H 1.80-2.40 mg/dL Total Bilirubin 0.6 0.2-1.0 mg/dL Aspartate Amino Transf (AST/SGOT) 34 10-37 U/L Alanine Aminotransferase (ALT/SGPT) 19 12-78 U/L Alkaline Phosphatase 82 50-136 U/L Total Protein 7.1 6.0-8.3 g/dL Albumin 2.7 L 3.5-5.0 g/dL Vitamin B12 Level 1458 H 193-986 pg/mL Lactic Acid Level 2.6 H 0.8-2.5 mmol/L Total Creatine Kinase 73 # 21-232 U/L Troponin I High Sensitivity 20.1 4-50 ng/L B-Type Natriuretic Peptide 804 H 0-100 pg/mL DIAGNOSTICS / RADIOLOGY RESULTS: [ ] PLAN NEURO: Minimize central acting medications as possible. Fall Precautions. Well lighted room through the day and minimize interruptions through the night to prevent acute delirium. PULMONARY: Supplemental 02 as needed Titrate Fio2 to keep Spo2 > or = 90% DuoNebs and CPT as needed IS hourly while awake for pulmonary hygiene Out of bed to chair as tolerated VAP Bundle BIPAP as needed CARDIOVASCULAR: Follow hemodynamics. Titrate vasopressor to keep MAP >65 or systolic blood pressure >95mmHg DRIPS: NA LINES: PIV GI & NUTRITION: Continue nutritional support Aspirations precautions Prokinetic agents and laxatives as needed KIDNEYS & ELECTROLYTES: Strict monitoring of intake and output Daily weights Avoid nephrotoxic agents Monitor electrolytes and replace as needed Goal urine output of 30mL/hr or 0.5mL/kg/hr ENDOCRINE: Maintain blood glucose between 100-180 at all times. Insulin sliding scale for blood glucose management INFECTIOUS DISEASE: Trend temperature. Aguilar-culture if febrile. Micro: Urine Blood Sputum Antibiotics: HAP coverage HEMATOLOGY & COAGULATION: Monitor H&H. Keep Hgb > 7 Transfuse 1 unit of PRBC for Hgb < 7 Transfuse 1 pack of platelets of platelets < 20, 000 Watch for any signs and symptoms of bleeding SKIN: Pressure ulcer prevention per facility protocol Rehab: PT/OT Prophylaxis: GI: Pepcid DVT: Lovenox Code Status: Full Resuscitation Disposition: PCCU Other: Total patient care time exceeds 35 minutes excluding all procedures. Case was discussed and seen with my supervising physician. The above plan was formulated and agreed upon. ALEJANDRO MEYER MD Nov 20, 2024 16:31
--- NOTE | 2024-11-20 19:00 | PN ---
[facility] PROGRESS NOTE Date Patient Seen: Nov 20, 2024 Time of Visit: 18:52 Supervising Physician: MARIA TERESA PUTNAM MD Primary Care Physician: Dr. Harrison Krishnamurthy Outpatient Specialists: [facility] Inpatient Consults: Dr. Putnam PROBLEM LIST: Acute hypoxic respiratory failure Health care acquired pneumonia suspected aspiration Sepsis without organ damage and without shock Lactic acidosis secondary to sepsis Dysphagia status post PEG tube placement History of CVA, aphasia, dysphagia post PEG tube placement, seizures, heart failure, CAD, GERD, diabetes mellitus, GERD Possible PE , need to rule out INTERVAL HISTORY: 11/20/24 Patient is seen and evaluated Events of the last 24 hours noted currently on high-flow oxygen with 30% FiO2 Cultures are negative, flu is negative and COVID-19 test is negative I personally reviewed the patient's chest x-ray showing with atelectasis and low lung volumes REVIEW OF SYSTEMS: 12 point ROS reviewed with patient. Pertinent positives mentioned above. Otherwise negative. PHYSICAL EXAM: GENERAL: awake, aphasic. bedbound HEENT: EOMI, Sclera non icteric, moist mucosa NECK: Supple, no JVD, trachea midline LUNGS: Decreased air entry bilaterally without wheezing or rhonchi HEART: Regular rate and rhythm. Normal S1 and S2, without murmurs ABD: Abdomen soft, nontender. Bowel sounds present EXT: No clubbing cyanosis or edema NEURO: not following command Vital Signs (last 8hr) Date Time Temp Pulse Resp B/P (MAP) Pulse Ox O2 Delivery O2 Flow Rate FiO2 11/20/24 18:50 82 18 N/Cannula Low lpm 2.0 28 11/20/24 16:07 97.5 78 16 120/70 100 Nasal Cannula 2.0 11/20/24 11:43 99.0 91 18 140/69 97 Nasal Cannula 2.0 11/20/24 11:30 80 18 N/Cannula Low lpm 2.0 28 11/20/24 11:27 80 18 LABS: Hematology Labs: Test 11/20/24 03:49 11/19/24 03:54 Range/Units White Blood Count 6.8 4.8-10.8 K/uL Red Blood Count 4.20 4.00-5.50 MIL/uL Hemoglobin 12.9 12.0-16.0 g/dL Hematocrit 38.9 36-48 % Mean Corpuscular Volume 92.6 79-99 fL Mean Corpuscular Hemoglobin 30.7 27.0-33.0 pg Mean Corpuscular Hemoglobin Concent 33.2 32.0-36.0 g/dL Red Cell Distribution Width 13.5 11.0-15.5 % Platelet Count 187 130-400 K/uL Mean Platelet Volume 11.1 H 7.5-10.5 fL Nucleated Red Blood Cells 0.0 0.0-0.19 % Immature Granulocyte % (Auto) 0.7 0-1 % Neutrophils (%) (Auto) 75.9 40.0-77.0 % Lymphocytes (%) (Auto) 12.0 L 21.0-51.0 % Monocytes (%) (Auto) 10.8 3.0-13.0 % Eosinophils (%) (Auto) 0.1 0.0-8.0 % Basophils (%) (Auto) 0.5 0.0-5.0 % Neutrophils # (Auto) 6.6 1.8-7.7 K/uL Lymphocytes # (Auto) 1.0 1.0-4.8 K/uL Monocytes # (Auto) 0.9 0.1-1.0 K/uL Eosinophils # (Auto) 0.01 0.00-0.70 K/uL Basophils # (Auto) 0.04 0.00-0.20 K/uL Absolute Immature Granulocyte (auto 0.06 0-1 K/uL Chemistry Labs: Test 11/20/24 15:55 11/20/24 03:49 11/19/24 07:33 11/19/24 03:54 Range/Units Whole Blood Glucose 98 70-110 MG/DL Sodium Level 141 136-145 mmol/L Potassium Level 4.0 3.5-5.1 mmol/L Chloride Level 102 101-111 mmol/L Carbon Dioxide Level 30 21-32 mmol/L Blood Urea Nitrogen 21 H 7-18 mg/dL Creatinine 1.0 0.5-1.0 mg/dL Glomerular Filtration Rate Calc 57 >90 mL/min Random Glucose 105 70-105 mg/dL Total Calcium 8.6 8.5-10.1 mg/dL Magnesium Level 2.60 H 1.80-2.40 mg/dL Total Bilirubin 0.6 0.2-1.0 mg/dL Aspartate Amino Transf (AST/SGOT) 34 10-37 U/L Alanine Aminotransferase (ALT/SGPT) 19 12-78 U/L Alkaline Phosphatase 82 50-136 U/L Total Protein 7.1 6.0-8.3 g/dL Albumin 2.7 L 3.5-5.0 g/dL Vitamin B12 Level 1458 H 193-986 pg/mL Lactic Acid Level 2.6 H 0.8-2.5 mmol/L Total Creatine Kinase 73 # 21-232 U/L Troponin I High Sensitivity 20.1 4-50 ng/L B-Type Natriuretic Peptide 804 H 0-100 pg/mL Coagulation Labs: Test 11/20/24 17:00 Range/Units D-Dimer Quantitative (PE/DVT) 1008 *H 0-500 ng/mL DIAGNOSTICS / RADIOLOGY RESULTS: [ Reviewed at bedside, no evidence of infiltrates] PLAN Based on physical examination and lack of infiltrates on x-ray I am inclined to consider the possibility of a pulmonary emboli Get USG Doppler of the BLE Get D-dimer NEURO: Minimize central acting medications as possible. Maintain fall precautions, adequate lighting during the day PULMONARY: Supplemental 02 as needed. Maintain aspiration precautions at all times CARDIOVASCULAR: Follow hemodynamics. Vital signs per facility protocol GI & NUTRITION: Continue with nutritional support. Continue stool softeners and laxatives as needed. KIDNEYS & ELECTROLYTES: Strict monitoring of intake, output and overall fluid balance. Avoid nephrotoxic medications to the extent possible. Medications to be dosed according to renal function. Monitor electrolytes and replace as needed ENDOCRINE: Maintain blood glucose between 100-180 at all times. Hypoglycemia protocol in place INFECTIOUS DISEASE: Trend temperature, WBC and procalcitonin level Follow cultures, deescalate antibiotics as soon as possible. Panculture if new onset fever ONCOLOGY/HEMATOLOGY/COAGULATION: Monitor for s/s of bleeding Monitor hemoglobin, coagulation studies as needed SKIN: Pressure ulcer prevention per facility protocol Specialty mattress ORTHO/REHAB: Continue PT/OT Prophylaxis: Continue GI and DVT prophylaxis Code Status: Full Resuscitation Disposition: TBD Other: Total patient care time exceeds 35 minutes excluding all procedures. ATTESTATION BY PHYSICIAN Clinical note scribed by ROBBY HODGES medical file clerk. I can attest to the clinical accuracy and veracity of the note. Maria eTresa Putnam MD I personally scribed for MARIA TERESA PUTNAM MD ([email or web address]) on 11/20/24 at 19:00. Electronically submitted by Robby Hodges ([email or web address]). MARIA TERESA PUTNAM MD Nov 20, 2024 19:00
[2024-11-20] MEDS: leveTIRACEtam 100 MG/ML 5 ML UDCUP PEG SCH (21:49)
[2024-11-20] MEDS: furoSEMIDE 20MG VIAL IV SCH (21:49)
[2024-11-20] MEDS: doCUSate NA 100MG/10ML UDCUP PEG SCH (21:49)
[2024-11-20] MEDS: metoPROLOL tartRATE 25 MG TAB PO SCH (21:49)
[2024-11-21] VITALS (15 sets, daily range): BP systolic 130–162; BP diastolic 69–103; PULSE 78–97; RESP 16–20; TEMP 97.8–98.5; O2SAT 96–100
[2024-11-21 04:06] LABS: HEMATOCRIT 38.8 % (36-48); MEAN CORPUSCULAR HEMOGLOBIN 31.3 pg (27.0-33.0); MEAN CORPUSCULAR HGB CONC 33.8 g/dL (32.0-36.0); MEAN CORPUSCULAR VOLUME 92.8 fL (79-99); RED BLOOD CELL COUNT(AUTO) 4.18 MIL/uL (4.00-5.50); RED CELL DISTRIBUTION WIDTH 13.6 % (11.0-15.5); WHITE BLOOD COUNT (AUTO) 4.9 K/uL (4.8-10.8)
[2024-11-21 04:27] LABS: ALBUMIN 2.7 g/dL (3.5-5.0); BILIRUBIN,TOTAL 0.5 mg/dL (0.2-1.0); MAGNESIUM 2.4 mg/dL (1.80-2.40); POTASSIUM 3.5 mmol/L (3.5-5.1); TOTAL PROTEIN, SERUM 7.3 g/dL (6.0-8.3)
[2024-11-21] MEDS: PoTASSium chl 10% ELIXIR 20MEQ 20 MEQ/15 ML UDCUP PO PRN (05:46)
--- NOTE | 2024-11-21 08:48 | HMCIMG ---
ULTRASOUND VENOUS DOPPLER, BILATERAL LOWER EXTREMITIES INDICATION: Bilateral lower extremity pain and swelling TECHNIQUE: Routine grayscale and color Doppler ultrasound of the bilateral lower extremity veins performed. COMPARISON: No priors. FINDINGS: The demonstrated veins of the bilateral lower extremity including the common femoral vein, femoral vein, and popliteal vein are associated with normal compressibility, and normal augmentation and flow demonstrated along the right lower extremity only. No evidence for echogenic intraluminal thrombus formation. IMPRESSION: No sonographic evidence for deep venous thrombosis within the bilateral lower extremity veins.
[2024-11-21] MEDS: ESCITALOPRAM OXALATE PEG SCH (09:00)
[2024-11-21] MEDS: SIMETHICONE 80 MG TAB.CHEW PEG SCH (09:39)
[2024-11-21] MEDS: ASPIRIN 81MG CHEW TAB PEG SCH (09:40)
--- NOTE | 2024-11-21 10:24 | PN ---
[facility] CARDIOLOGY PROGRESS NOTE Date Patient Seen: Nov 21, 2024 Time of Visit: 10:23 Problem List: Acute on chronic HFPEF Interval History: No acute concerns pr RN Patient pending CTA Chest due to abnormal ddimer Respiratory status stable on room air ROS limited as patient essentially aphasic. Physical Examination: GENERAL: [No acute distress.] HEAD: [Normal with no signs of head trauma.] NECK: [ Normal carotid upstrokes without bruits.] LUNGS: [Clear breath sounds bilaterally. No crackles appreciated. No distress On room air. No wheezes, or rhonchi.] HEART: [Normal rate and rhythm. Normal S1 and S2 without murmurs, gallop or rub.] VASC: [Peripheral pulses +2 bilaterally.] EXT: [No clubbing, cyanosis or edema.] SKIN: [No rashes or lesions noted.] NEURO: [Awake, alert. Essentially aphasic however does express nonsensical vocalizations. Laboratory: [ ] Hematology Labs: Test 11/21/24 03:53 Range/Units White Blood Count 4.9 4.8-10.8 K/uL Red Blood Count 4.18 4.00-5.50 MIL/uL Hemoglobin 13.1 12.0-16.0 g/dL Hematocrit 38.8 36-48 % Mean Corpuscular Volume 92.8 79-99 fL Mean Corpuscular Hemoglobin 31.3 27.0-33.0 pg Mean Corpuscular Hemoglobin Concent 33.8 32.0-36.0 g/dL Red Cell Distribution Width 13.6 11.0-15.5 % Platelet Count 221 130-400 K/uL Mean Platelet Volume 11.1 H 7.5-10.5 fL Nucleated Red Blood Cells 0.0 0.0-0.19 % Chemistry Labs: Test 11/21/24 05:41 11/21/24 03:53 11/20/24 03:49 Range/Units Whole Blood Glucose 139 H 70-110 MG/DL Sodium Level 146 H 136-145 mmol/L Potassium Level 3.5 3.5-5.1 mmol/L Chloride Level 106 101-111 mmol/L Carbon Dioxide Level 34 H 21-32 mmol/L Blood Urea Nitrogen 28 H 7-18 mg/dL Creatinine 1.0 0.5-1.0 mg/dL Glomerular Filtration Rate Calc 57 >90 mL/min Random Glucose 111 H 70-105 mg/dL Total Calcium 8.6 8.5-10.1 mg/dL Magnesium Level 2.40 1.80-2.40 mg/dL Total Bilirubin 0.5 0.2-1.0 mg/dL Aspartate Amino Transf (AST/SGOT) 35 10-37 U/L Alanine Aminotransferase (ALT/SGPT) 22 12-78 U/L Alkaline Phosphatase 80 50-136 U/L Total Protein 7.3 6.0-8.3 g/dL Albumin 2.7 L 3.5-5.0 g/dL Vitamin B12 Level 1458 H 193-986 pg/mL Coagulation Labs: Test 11/20/24 17:00 Range/Units D-Dimer Quantitative (PE/DVT) 1008 *H 0-500 ng/mL Diagnostics / Radiology: REASON: R/O DVT ORDERING PHYSICIAN: ALEJANDRO MEYER MD PROCEDURE: VENOUS SHEILA - US VENOUS DOPPLER BILATERAL ULTRASOUND VENOUS DOPPLER, BILATERAL LOWER EXTREMITIES INDICATION: Bilateral lower extremity pain and swelling TECHNIQUE: Routine grayscale and color Doppler ultrasound of the bilateral lower extremity veins performed. COMPARISON: No priors. FINDINGS: The demonstrated veins of the bilateral lower extremity including the common femoral vein, femoral vein, and popliteal vein are associated with normal compressibility, and normal augmentation and flow demonstrated along the right lower extremity only. No evidence for echogenic intraluminal thrombus formation. IMPRESSION: No sonographic evidence for deep venous thrombosis within the bilateral lower extremity veins. DICTATED BY: ADIEL CABALLERO MD DATE: 11/21/24 0845 Assessment: 1. Recurrent aspiration pneumonia and sepsis 2. Acute on chronic diastolic heart failure with LV ejection fraction of 50-55% and grade 1 diastolic left ventricular dysfunction by echo July 2024. BNP 804. 3. [id number] mitral stenosis with significant mitral annular calcification not felt to be a candidate for intervention 4. Carotid artery disease status post stenting September 2013 with subsequent stroke May 2021 5. Dysphagia status post PEG placement 6. Nonobstructive coronary artery disease and left heart catheterization April 2014 7. Hypertension 8. Dyslipidemia Transition from IV to PO lasix Pending CTA chest due to elevated ddimer Continue ASA Due to her history of CAD and LARISSA, will add statin therapy. Stable from cardiac standpoint ARI WALTON DO Nov 21, 2024 10:24
--- NOTE | 2024-11-21 10:25 | NUR ---
CTA ON HOLD ATT, SPOKE WITH RN RADHA PT UNABLE TO LAY FLAT/UNABLE TO SIGN CONSENT
--- NOTE | 2024-11-21 11:25 | NUR ---
cm note PER NORMAN REP AT [facility] IS ABLE TO ACCEPT PATIENT BACK TO [facility] . PATIENT IS BED BOUND AND WILL REQUIRE EMS. [facility] FORM COMPLETED AND PLACED IN CHART MINUS THE TRANSPORT DATE.
--- NOTE | 2024-11-21 12:17 | PN ---
[facility] PROGRESS NOTE Date of Service: Nov 21, 2024 Time of Service: 12:15 SUBJECTIVE: [ ] Patient has been seen and examined during rounding, no acute events overnight, patient nonverbal, BP 120/70, afebrile, saturating 100% 2 L nasal cannula. Patient getting IV antibiotics during my visit. Chest x-ray showing patchy infiltrate or atelectasis medial left lung base. Serology negative for influenza type a and B as well as SARS antigen. 11/21/24 patient is seen and examined during my rounding, no acute events overnight, remains comfortably in bed, BP 162/84, saturating 98% 2 L via nasal cannula. WBC remains within the normal range. CMP unremarkable, septic workup so far negative. Venous Doppler no evidence of deep venous thrombosis within the bilateral lower extremity veins. We will discuss with case management possibility of transferring back to halfway facility. REVIEW OF SYSTEMS CONSTITUTIONAL: Denies fevers, chills, or night sweats. No unintentional weight loss reported. NEUROLOGICAL: Denies headache, amaurosis fugax, motor weakness, sensory deficit, vertigo/spinning sensation, gait abnormalities, or tremors. ENT: No hearing loss, otalgia, otorrhea, rhinitis, rhinorrhea, hoarseness, or sore throat. CARDIOVASCULAR: Denies any exertional angina, dyspnea on exertion, orthopnea, paroxysmal nocturnal dyspnea, palpitations, life-threatening arrhythmias, claudication. PULMONARY: Denies any shortness of breath, cough, phlegm/sputum, hemoptysis, pleuritic chest pain. SLEEP: Denies morning headaches, daytime somnolence or napping. Denies difficulty falling asleep, staying asleep, waking from sleep. Denies knowledge of snoring. GASTROINTESTINAL: Denies any type of dysphagia to either liquids or solids. Denies nausea, vomiting, pyrosis, early satiety, abdominal pain, diarrhea, constipation, or changes in stool consistency or caliber. Denies coffee-ground emesis, hematemesis, hematochezia, or melanotic stools. GENITOURINARY: Denies frequency, urgency, nocturia, hematuria or incontinence (Storage/Irritative symptoms.) Low urinary stream, straining to void, urinary intermittency or hesitancy, splitting of the voiding stream, terminal dribbling. ENDOCRINOLOGIC: Denies polyuria, polydipsia, polyphagia or heat/cold intolerances. HEMATOLOGIC: Denies thrombophilia/previous clots, or coagulopathy/bleeding disorders. ONCOLOGIC: Denies personal history of malignancy. DERMATOLOGIC: Denies rashes or pruritus. PSYCHIATRIC: Denies any suicidal or homicidal ideation. Denies hallucinations. PHYSICAL EXAM GENERAL APPEARANCE: The patient is awake, alert, and oriented, in no acute cardiopulmonary distress. NEUROLOGICAL: Cranial nerves II-XII grossly intact. Motor is 5/5 in bilateral upper and lower extremities proximal to distal. No sensory deficits. HEENT: Face is symmetric. Pupils are equal and reactive. Extraocular movements are intact. NECK: Supple. No JVD. No thyromegaly. No submental, submandibular, pre- /postauricular, occipital or supraclavicular lymphadenopathy. CHEST: Normal chest expansion. No Telemetry. LUNGS: Absence of any rales, rhonchi or any wheezing. CARDIOVASCULAR: Regular. S1 and S2 normal. No appreciable rubs, murmurs or gallops. ABDOMEN: Soft, nontender, and nondistended. There is no rebound, voluntary guarding, or rigidity. : Deferred. No [place]. EXTREMITIES: Non-edematous and not cyanotic. No clubbing. Good capillary refill. SKIN: No skin breakdown. Vital Signs (last 8hr) Date Time Temp Pulse Resp B/P (MAP) Pulse Ox O2 Delivery O2 Flow Rate FiO2 11/21/24 11:57 97.9 87 18 162/84 98 Nasal Cannula 2.0 11/21/24 08:25 90 18 N/Cannula Low lpm 2.0 28 11/21/24 08:00 98.4 95 18 140/103 96 Room Air 11/21/24 07:30 100 Nasal Cannula* 2 28 11/21/24 06:48 94 18 11/21/24 04:30 98.4 82 18 140/69 94 Nasal Cannula 2.0 LABS: Laboratory: Test 11/21/24 11:40 11/21/24 03:53 11/20/24 17:00 11/20/24 03:49 Range/Units Whole Blood Glucose 153 H 70-110 MG/DL White Blood Count 4.9 4.8-10.8 K/uL Red Blood Count 4.18 4.00-5.50 MIL/uL Hemoglobin 13.1 12.0-16.0 g/dL Hematocrit 38.8 36-48 % Mean Corpuscular Volume 92.8 79-99 fL Mean Corpuscular Hemoglobin 31.3 27.0-33.0 pg Mean Corpuscular Hemoglobin Concent 33.8 32.0-36.0 g/dL Red Cell Distribution Width 13.6 11.0-15.5 % Platelet Count 221 130-400 K/uL Mean Platelet Volume 11.1 H 7.5-10.5 fL Nucleated Red Blood Cells 0.0 0.0-0.19 % Sodium Level 146 H 136-145 mmol/L Potassium Level 3.5 3.5-5.1 mmol/L Chloride Level 106 101-111 mmol/L Carbon Dioxide Level 34 H 21-32 mmol/L Blood Urea Nitrogen 28 H 7-18 mg/dL Creatinine 1.0 0.5-1.0 mg/dL Glomerular Filtration Rate Calc 57 >90 mL/min Random Glucose 111 H 70-105 mg/dL Total Calcium 8.6 8.5-10.1 mg/dL Magnesium Level 2.40 1.80-2.40 mg/dL Total Bilirubin 0.5 0.2-1.0 mg/dL Aspartate Amino Transf (AST/SGOT) 35 10-37 U/L Alanine Aminotransferase (ALT/SGPT) 22 12-78 U/L Alkaline Phosphatase 80 50-136 U/L Total Protein 7.3 6.0-8.3 g/dL Albumin 2.7 L 3.5-5.0 g/dL D-Dimer Quantitative (PE/DVT) 1008 *H 0-500 ng/mL Vitamin B12 Level 1458 H 193-986 pg/mL Test 11/20/24 03:17 Range/Units Blood Gas Specimen Type Arterial Arterial Blood pH 7.486 H 7.350-7.450 Arterial Blood Partial Pressure CO2 36 32-45 mmHg Arterial Blood Partial Pressure O2 69.4 L 83.0-108.0 mmHg Arterial Blood HCO3 26.6 21.0-28.0 mmol/L Arterial Blood Oxygen Saturation 94.1 94.0-98.0 % Arterial Blood Base Excess 3.4 H -2.0-3.0 mmol/L Hemoglobin (Blood Gas) 13.5 12.0-16.0 g/dL Sodium (Blood Gas) 138 136-145 MMOL/L Bedside Potassium (Blood Gas) 3.6 3.4-4.5 MMOL/L Bedside Chloride (Blood Gas) 101 98-107 MMOL/L Bedside Glucose (Blood Gas) 100 H 65-95 MG/DL Bedside Ionized Calcium (Blood Gas) 1.09 L 1.15-1.33 MMOL/L Bedside Lactic Acid (Blood Gas) 1.09 H 0.36-0.75 MMOL/L Blood Gas Temperature 37.0 35.5-37.0 CELSIUS Blood Gas Vent Mode RA ROOM AIR FiO2 21.0 % Blood Gas Specimen Comment RR RN Current Medications Medications (Trade) Dose Ordered Sig/Xi Route PRN Reason Start Time Stop Time Status Last Admin Dose Admin Acetaminophen (TYLenol 325MG TAB) 650 mg Q6H PRN PO MILD PAIN (1-3) 11/19/24 12:30 12/19/24 12:29 Acetylcysteine (MUComyst 20% 4ML) 400mg = 2ml [id number] IH 11/19/24 12:00 12/19/24 11:59 11/21/24 11:19 800 MG Albuterol (DUOneb) 1 UDVIAL [id number] IH 11/19/24 12:00 12/19/24 11:59 11/21/24 11:19 1 UDVIAL Aspirin (Aspirin 81mg Chew Tab) 81 mg DAILY PEG 11/21/24 09:00 12/21/24 08:59 11/21/24 09:40 81 MG Atorvastatin Calcium (LIPItor 40MG) 40 mg HS PO 11/21/24 21:00 12/21/24 20:59 Dexmedetomidine/ Sodium Chloride (PRECEdex 200MCG/ 50ML-NS) 200 mcg PROTOCOL IV 11/19/24 04:30 11/19/24 04:03 DC Dexmedetomidine/ Sodium Chloride (PRECEdex 400MCG/ 100ML-NS) 400 mcg PROTOCOL IV 11/19/24 04:00 11/19/24 04:01 DC Dexmedetomidine/ Sodium Chloride (PRECEdex 400MCG/ 100ML-NS) 400 mcg PROTOCOL IV 11/19/24 04:30 11/19/24 07:49 DC Dexmedetomidine/ Sodium Chloride (PRECEdex 400MCG/ 100ML-NS) 400 mcg PROTOCOL IV 11/19/24 04:30 11/19/24 16:10 DC 11/19/24 04:17 400 MCG Dextrose (D50w) 50 ml AD PRN IV HYPOGLYCEMIA PROTOCOL 11/19/24 17:00 12/19/24 16:59 Docusate Sodium (COLace LIQUID 100MG/10ML) 60 mg BID PEG 11/20/24 21:00 12/20/24 20:59 11/20/24 21:49 60 MG Enoxaparin Sodium (Lovenox) 40 mg DAILY SQ 11/19/24 09:00 12/19/24 08:59 11/21/24 09:42 40 MG Furosemide (LASix 20MG TAB) 20 mg Q12H PO 11/21/24 18:00 12/21/24 17:59 Furosemide (LASix 20MG VIAL) 20 mg Q12H IV 11/20/24 10:00 11/21/24 11:03 DC 11/21/24 09:40 20 MG Glucagon (Glucagon 1mg Kit) 1 mg AD PRN IM HYPOGLYCEMIA PROTOCOL 11/19/24 17:00 12/19/24 16:59 Home Med (Home Medication) (Escitalopram Oxalate 5 MG) DAILY PEG 11/21/24 09:00 12/21/24 08:59 Insulin Human Regular (humuLIN R 100 UNIT/ML 3ML) INSULIN SLIDING SCAL... Q6H6 SQ 11/19/24 18:00 12/19/24 17:59 Levetiracetam (kepPRA SOLN 100 MG/ML 5 ML UDCUP) 750 mg BID PEG 11/20/24 21:00 12/20/24 20:59 11/21/24 09:39 750 MG Metoprolol Tartrate (loprESSOR) 12.5 mg BID PO 11/20/24 21:00 12/20/24 20:59 11/21/24 09:40 12.5 MG Pantoprazole Sodium (PROTonix 40MG INJ) 40 mg DAILY IVP 11/19/24 09:00 12/19/24 08:59 11/21/24 09:39 40 MG Pharmacy Profile Note (Lace Assessment) 1 each AD MISC 11/19/24 14:00 11/19/24 13:58 DC Piperacillin Sod/ Tazobactam Sod (Zosyn 3.375gm+NS 50ml) 3.375 gm Q8H IV 11/19/24 08:00 11/29/24 07:59 11/21/24 09:39 3.375 GM Potassium Chloride 100 ml @ 50 mls/hr AD PRN IV POTASSIUM PROTOCOL 11/20/24 10:00 12/20/24 09:59 Potassium Chloride (KCl 10% Elixir 20meq/15ml) 20 meq AD PRN PO POTASSIUM PROTOCOL 11/21/24 05:30 12/21/24 05:29 11/21/24 05:46 20 MEQ Simethicone (Mylicon) 80 mg DAILY PEG 11/21/24 09:00 12/21/24 08:59 11/21/24 09:39 80 MG DIAGNOSTICS / RADIOLOGY: [ ] ASSESSMENT: [Acute hypoxemic respiratory failure, POA Sepsis, POA Healthcare associated pneumonia, POA Hyponatremia, POA Dehydration, POA Acute on chronic diastolic Congestive heart failure exacerbation, POA Elevated BNP, POA Hypotension, POA Elevated lactic acid, POA ] PLAN: Patient remains admitted to the PCU We will continue with IV antibiotics Continue with gentle IV fluids Continue to follow Pulmonary input and recommendation Continue patient on diuretics with Lasix 40 mg IV b.i.d. We will repeat labs tomorrow Request medications from the retirement GI and DVT prophylaxis We will repeat chest x-ray in the morning Disposition: Possible discharge back to halfway facility, we will discuss with case management. Total visit time spent greater than 30 minutes. KIKA HOFFMAN MD Nov 21, 2024 12:17
--- NOTE | 2024-11-21 19:31 | PN ---
[facility] PROGRESS NOTE Date Patient Seen: Nov 21, 2024 Time of Visit: 12:27 Supervising Physician: IKE PLUNKETT MD Primary Care Physician: Dr. Harrison Krishnamurthy Outpatient Specialists: [facility] Inpatient Consults: Dr. Putnam PROBLEM LIST: Acute hypoxic respiratory failure Health care acquired pneumonia suspected aspiration Sepsis without organ damage and without shock Lactic acidosis secondary to sepsis Dysphagia status post PEG tube placement History of CVA, aphasia, dysphagia post PEG tube placement, seizures, heart failure, CAD, GERD, diabetes mellitus, GERD Possible PE , need to rule out INTERVAL HISTORY: 11/20/24 Patient is seen and evaluated Events of the last 24 hours noted currently on high-flow oxygen with 30% FiO2 Cultures are negative, flu is negative and COVID-19 test is negative I personally reviewed the patient's chest x-ray showing with atelectasis and low lung volumes 11/21/24 patient seen and examined at the bedside , she is a peg tube status toleratin gher feedings, currently on room air, on IV lasix , Echocardiogram showed 55% EF, managed with diuresis, plan is to cancel CTA of the chest. REVIEW OF SYSTEMS: 12 point ROS reviewed with patient. Pertinent positives mentioned above. Otherwise negative. PHYSICAL EXAM: GENERAL: awake, aphasic. bedbound HEENT: EOMI, Sclera non icteric, moist mucosa NECK: Supple, no JVD, trachea midline LUNGS: Decreased air entry bilaterally without wheezing or rhonchi HEART: Regular rate and rhythm. Normal S1 and S2, without murmurs ABD: Abdomen soft, nontender. Bowel sounds present EXT: No clubbing cyanosis or edema NEURO: not following command Vital Signs (last 8hr) Date Time Temp Pulse Resp B/P (MAP) Pulse Ox O2 Delivery O2 Flow Rate FiO2 11/21/24 18:51 91 20 N/A Room Air 11/21/24 18:51 90 18 11/21/24 16:46 98.1 16 151/85 97 Nasal Cannula 2.0 11/21/24 11:57 97.9 87 18 162/84 98 Nasal Cannula 2.0 LABS: Hematology Labs: Test 11/21/24 03:53 Range/Units White Blood Count 4.9 4.8-10.8 K/uL Red Blood Count 4.18 4.00-5.50 MIL/uL Hemoglobin 13.1 12.0-16.0 g/dL Hematocrit 38.8 36-48 % Mean Corpuscular Volume 92.8 79-99 fL Mean Corpuscular Hemoglobin 31.3 27.0-33.0 pg Mean Corpuscular Hemoglobin Concent 33.8 32.0-36.0 g/dL Red Cell Distribution Width 13.6 11.0-15.5 % Platelet Count 221 130-400 K/uL Mean Platelet Volume 11.1 H 7.5-10.5 fL Nucleated Red Blood Cells 0.0 0.0-0.19 % Chemistry Labs: Test 11/21/24 16:11 11/21/24 03:53 11/20/24 03:49 Range/Units Whole Blood Glucose 130 H 70-110 MG/DL Sodium Level 146 H 136-145 mmol/L Potassium Level 3.5 3.5-5.1 mmol/L Chloride Level 106 101-111 mmol/L Carbon Dioxide Level 34 H 21-32 mmol/L Blood Urea Nitrogen 28 H 7-18 mg/dL Creatinine 1.0 0.5-1.0 mg/dL Glomerular Filtration Rate Calc 57 >90 mL/min Random Glucose 111 H 70-105 mg/dL Total Calcium 8.6 8.5-10.1 mg/dL Magnesium Level 2.40 1.80-2.40 mg/dL Total Bilirubin 0.5 0.2-1.0 mg/dL Aspartate Amino Transf (AST/SGOT) 35 10-37 U/L Alanine Aminotransferase (ALT/SGPT) 22 12-78 U/L Alkaline Phosphatase 80 50-136 U/L Total Protein 7.3 6.0-8.3 g/dL Albumin 2.7 L 3.5-5.0 g/dL Vitamin B12 Level 1458 H 193-986 pg/mL Coagulation Labs: Test 11/20/24 17:00 Range/Units D-Dimer Quantitative (PE/DVT) 1008 *H 0-500 ng/mL DIAGNOSTICS / RADIOLOGY RESULTS: [ ] PLAN Continue with diuresis monitor kidney function Cancel CTA of the chest NEURO: Minimize central acting medications as possible. Maintain fall precautions, adequate lighting during the day PULMONARY: Supplemental 02 as needed. Maintain aspiration precautions at all times CARDIOVASCULAR: Follow hemodynamics. Vital signs per facility protocol GI & NUTRITION: Continue with nutritional support. Continue stool softeners and laxatives as needed. KIDNEYS & ELECTROLYTES: Strict monitoring of intake, output and overall fluid balance. Avoid nephrotoxic medications to the extent possible. Medications to be dosed according to renal function. Monitor electrolytes and replace as needed ENDOCRINE: Maintain blood glucose between 100-180 at all times. Hypoglycemia protocol in place INFECTIOUS DISEASE: Trend temperature, WBC and procalcitonin level Follow cultures, deescalate antibiotics as soon as possible. Panculture if new onset fever ONCOLOGY/HEMATOLOGY/COAGULATION: Monitor for s/s of bleeding Monitor hemoglobin, coagulation studies as needed SKIN: Pressure ulcer prevention per facility protocol Specialty mattress ORTHO/REHAB: Continue PT/OT Prophylaxis: Continue GI and DVT prophylaxis Code Status: Full Resuscitation Disposition: TBD Other: Total patient care time exceeds 35 minutes excluding all procedures. ATTESTATION BY PHYSICIAN Documentation assistance provided by a scribe, information recorded by the scribe was done at my direction and has been reviewed and validated by me." ANGELA RAMIRES MD I personally scribed for KIARRA RAMIRES MD ([email or web address]) on 11/21/24 at 19:31. Electronically submitted by Ashley Vanessa ([id number]). KIARRA RAMIRES MD Nov 21, 2024 19:31
[2024-11-21] MEDS: atorVAStatin 40 MG TABLET PO SCH (21:30)
[2024-11-21] MEDS: furoSEMIDE 20 MG TABLET PO SCH (21:32)
[2024-11-22] VITALS (10 sets, daily range): BP systolic 108–129; BP diastolic 50–68; PULSE 73–91; RESP 16–20; TEMP 97.6–98.2; O2SAT 94–97
[2024-11-22 04:21] LABS: HEMATOCRIT 37.1 % (36-48); MEAN CORPUSCULAR HGB CONC 32.9 g/dL (32.0-36.0); MEAN CORPUSCULAR VOLUME 94.4 fL (79-99); RED BLOOD CELL COUNT(AUTO) 3.93 MIL/uL (4.00-5.50); RED CELL DISTRIBUTION WIDTH 13.5 % (11.0-15.5); WHITE BLOOD COUNT (AUTO) 7.1 K/uL (4.8-10.8)
[2024-11-22 04:40] LABS: ALBUMIN 2.5 g/dL (3.5-5.0); BILIRUBIN,TOTAL 0.4 mg/dL (0.2-1.0); CREATININE 0.9 mg/dL (0.5-1.0); MAGNESIUM 2.2 mg/dL (1.80-2.40); POTASSIUM 3.5 mmol/L (3.5-5.1); TOTAL PROTEIN, SERUM 6.8 g/dL (6.0-8.3)
--- NOTE | 2024-11-22 08:59 | PN ---
[facility] CARDIOLOGY PROGRESS NOTE Date Patient Seen: Nov 22, 2024 Time of Visit: 08:40 Interval History: 79-year-old [place] female, resident of [facility], with a history of hypertension, hyperlipidemia, nonobstructive coronary artery disease by prior cardiac catheterization in 2013, carotid artery disease status post remote left internal carotid ASPHALT BLENDER and stent procedure in 2012, large left middle cerebral artery territory CVA June 09, 2021 with near occlusion of the left carotid artery by CT angiogram June 09, 2021, as well as severe mitral stenosis by 2D echocardiogram 07/29/2024 with a mitral valve area of 0.8 cm2, mean mitral valve gradient of 10 mm of mercury, and an LVEF of 50-55% documented at that time. She was admitted with pneumonia and an elevated BNP of 804. She was treated with an initial IV Lasix diuresis transition to p.o. yesterday. She has had no follow up chest x-ray or BNP thus far. She is resting comfortably flat in bed, is afebrile, and has not had any leukocytosis. Plans for a CT angiogram were canceled due to low likelihood felt by our Pulmonary business system consultant Dr. Garcia. Physical Examination: GENERAL: No acute distress. HEAD: Normal with no signs of head trauma. EYES: PERRLA, EOMI, conjunctiva and sclera normal. NECK: Supple without JVD. There is no tenderness, lymphadenopathy, or masses. No thyromegaly. Normal carotid upstrokes without bruits. LUNGS: Clear breath sounds bilaterally. No wheezes, or rhonchi. HEART: Normal rate and rhythm. Normal S1 and S2 without murmurs, gallop or rub. VASC: Peripheral pulses +2 bilaterally. EXT: No clubbing, cyanosis or edema. NEURO: Awake, alert, and oriented x3. No focal neurological deficits noted. Laboratory: Hematology Labs: Test 11/22/24 04:01 Range/Units White Blood Count 7.1 4.8-10.8 K/uL Red Blood Count 3.93 L 4.00-5.50 MIL/uL Hemoglobin 12.2 12.0-16.0 g/dL Hematocrit 37.1 36-48 % Mean Corpuscular Volume 94.4 79-99 fL Mean Corpuscular Hemoglobin 31.0 27.0-33.0 pg Mean Corpuscular Hemoglobin Concent 32.9 32.0-36.0 g/dL Red Cell Distribution Width 13.5 11.0-15.5 % Platelet Count 203 130-400 K/uL Mean Platelet Volume 11.0 H 7.5-10.5 fL Nucleated Red Blood Cells 0.0 0.0-0.19 % Chemistry Labs: Test 11/22/24 06:17 11/22/24 04:01 Range/Units Whole Blood Glucose 143 H 70-110 MG/DL Sodium Level 146 H 136-145 mmol/L Potassium Level 3.5 3.5-5.1 mmol/L Chloride Level 106 101-111 mmol/L Carbon Dioxide Level 33 H 21-32 mmol/L Blood Urea Nitrogen 31 H 7-18 mg/dL Creatinine 0.9 0.5-1.0 mg/dL Glomerular Filtration Rate Calc 65 >90 mL/min Random Glucose 108 H 70-105 mg/dL Total Calcium 8.2 L 8.5-10.1 mg/dL Magnesium Level 2.20 1.80-2.40 mg/dL Total Bilirubin 0.4 0.2-1.0 mg/dL Aspartate Amino Transf (AST/SGOT) 26 10-37 U/L Alanine Aminotransferase (ALT/SGPT) 21 12-78 U/L Alkaline Phosphatase 72 50-136 U/L Total Protein 6.8 6.0-8.3 g/dL Albumin 2.5 L 3.5-5.0 g/dL Coagulation Labs: Test 11/20/24 17:00 Range/Units D-Dimer Quantitative (PE/DVT) 1008 *H 0-500 ng/mL Diagnostics / Radiology: 2D echocardiogram 07/29/2024: Conclusion The left ventricle structure and function is normal. 50-55% with normal LV segmental wall motion. Mild left ventricular hypetrophy. Unable to assess due to severe MAC Right ventricle is normal in size and systolic function. Left atrium is severely dilated. Severe mitral annular calcification with moderate-severe mitral stenosis by visual assessment. Mitral valve areas 0.8 cm2 and mitral valve mean gradient of 10 mm of mercury. No pericardial effusion. DICTATED BY: THALIA OWEN MD DATE: 07/29/24 0843 Impression and Plan: Acute hypoxemic respiratory failure: Healthcare associated pneumonia ([facility] resident), likely aspiration: -responded well to antibiotics and diuretic therapy -Comfortable flat in bed without evidence of fever leukocytosis Acute on chronic diastolic congestive heart failure (HFpEF), with LVEF of 50-55% by 2D echo 07/29/2024: Severe mitral stenosis with mitral valve area of 0.8 cm2, mitral valve mean gradient of 10 mm of mercury, and severe mitral annular calcification: -not a candidate for surgical/percutaneous intervention -reduce p.o. furosemide to 20 mg daily -continue low-dose metoprolol therapy 12.5 b.i.d. -cleared for discharge from a cardiac viewpoint -follow up appointment at [facility] in two weeks for reassessment Comorbidities: Nonobstructive coronary artery disease by cardiac catheterization May 10, 2014 Carotid artery disease status post remote stenting of the left internal carotid artery in 2012 Large left middle cerebral artery territory CVA June 09, 2021 with near occlusion of the left carotid artery by CT angiogram at that time Essential hypertension Hyperlipidemia Dysphagia Aphasia RADHA CLAY MD Nov 22, 2024 08:59
[2024-11-22] MEDS: furoSEMIDE 20 MG TABLET PO SCH (09:08)
[2024-11-22] MEDS: ZOSYN 3.375GM +NS 50ML IV SCH (09:28)
--- NOTE | 2024-11-22 10:36 | HMCIMG ---
CHEST 1VW REASON: follow up CHF/pneumonia COMPARISON: 11/19/2024 FINDINGS: Single view of the chest was obtained. Lungs are clear. Heart size is normal. There is no pulmonary vascular congestion. Mediastinum and bony thorax appear unremarkable. Incidental note is made of calcified mitral valve annulus, unchanged. IMPRESSION: 1. No acute finding.
--- NOTE | 2024-11-22 11:10 | PN ---
[facility] PROGRESS NOTE Date Patient Seen: Nov 22, 2024 Time of Visit: 11:09 Supervising Physician: Dr. Garcia Primary Care Physician: Dr. Harrison Krishnamurthy Outpatient Specialists: DARREN Inpatient Consults: [facility], critical care group ([facility]) PROBLEM LIST: Acute hypoxic respiratory failure, POA, improved on RA on 11/22/24 Health care acquired pneumonia suspected aspiration, POA Sepsis without organ damage and without shock Lactic acidosis secondary to sepsis Dysphagia status post PEG tube placement History of CVA, aphasia, dysphagia post PEG tube placement, seizures, heart failure, CAD, GERD, diabetes mellitus, GERD INTERVAL HISTORY: 11/20/24 Patient is seen and evaluated Events of the last 24 hours noted currently on high-flow oxygen with 30% FiO2 Cultures are negative, flu is negative and COVID-19 test is negative 11/21/24 patient seen and examined at the bedside , she is a peg tube status toleratin gher feedings, currently on room air, on IV lasix , Echocardiogram showed 55% EF, managed with diuresis, plan is to cancel CTA of the chest. 11/22/24 The patient was seen by me (Naomi) today. Patient's breathing was even, unlabored. RN reports that on arrival patient's oxygen level were 80% and was on high-flow. RN reports that now the patient oxygen levels have been in the 90s on room air. CTA chest was ordered by the resident yesterday due to sons report that patient appeared unlabored, D-dimer was done and resulted to be elevated. CTA was canceled by Dr. Garcia, flat screen worker. Today's patient's b reathing continues even and unlabored. No overnight events. Today [facility]'s staff member came to see patient and reports that she is expecting patient to go back to [facility] and was following up on the patient. Plan is for patient to return back to [facility]. Discharge patient back to [facility] will be done by [facility] hospitalist primary attending team. REVIEW OF SYSTEMS: Unable to assess due to patient's chronic medical condition. PHYSICAL EXAM: GENERAL: Asleep, wakes up to touch. Aphasic. bedbound HEENT: EOMI, Sclera non icteric, moist mucosa. Left eye has and dry crust. NECK: Supple, no JVD, trachea midline LUNGS: Good airflow bilaterally without wheezing or rhonchi. HEART: Regular rate and rhythm. Normal S1 and S2, without murmurs ABD: Obese. Peg tube in place. Abdomen soft, nontender. Bowel sounds present. EXT: No clubbing cyanosis or edema. Contractures to bilateral upper extremities. Bilateral footdrop. NEURO: Neuro at baseline: No attempt to track. Does not follow command. No purposeful movement. Vital Signs (last 8hr) Date Time Temp Pulse Resp B/P (MAP) Pulse Ox O2 Delivery O2 Flow Rate FiO2 11/22/24 08:22 97.5 86 16 118/50 97 Room Air 11/22/24 08:00 97 Room Air* 0 21 11/22/24 07:06 91 18 11/22/24 07:05 20 N/A Room Air 2.0 28 11/22/24 05:00 98.2 74 18 129/65 94 Room Air LABS: Hematology Labs: Test 11/22/24 04:01 Range/Units White Blood Count 7.1 4.8-10.8 K/uL Red Blood Count 3.93 L 4.00-5.50 MIL/uL Hemoglobin 12.2 12.0-16.0 g/dL Hematocrit 37.1 36-48 % Mean Corpuscular Volume 94.4 79-99 fL Mean Corpuscular Hemoglobin 31.0 27.0-33.0 pg Mean Corpuscular Hemoglobin Concent 32.9 32.0-36.0 g/dL Red Cell Distribution Width 13.5 11.0-15.5 % Platelet Count 203 130-400 K/uL Mean Platelet Volume 11.0 H 7.5-10.5 fL Nucleated Red Blood Cells 0.0 0.0-0.19 % Chemistry Labs: Test 11/22/24 06:17 11/22/24 04:01 Range/Units Whole Blood Glucose 143 H 70-110 MG/DL Sodium Level 146 H 136-145 mmol/L Potassium Level 3.5 3.5-5.1 mmol/L Chloride Level 106 101-111 mmol/L Carbon Dioxide Level 33 H 21-32 mmol/L Blood Urea Nitrogen 31 H 7-18 mg/dL Creatinine 0.9 0.5-1.0 mg/dL Glomerular Filtration Rate Calc 65 >90 mL/min Random Glucose 108 H 70-105 mg/dL Total Calcium 8.2 L 8.5-10.1 mg/dL Magnesium Level 2.20 1.80-2.40 mg/dL Total Bilirubin 0.4 0.2-1.0 mg/dL Aspartate Amino Transf (AST/SGOT) 26 10-37 U/L Alanine Aminotransferase (ALT/SGPT) 21 12-78 U/L Alkaline Phosphatase 72 50-136 U/L B-Type Natriuretic Peptide 228 H 0-100 pg/mL Total Protein 6.8 6.0-8.3 g/dL Albumin 2.5 L 3.5-5.0 g/dL Coagulation Labs: Test 11/20/24 17:00 Range/Units D-Dimer Quantitative (PE/DVT) 1008 *H 0-500 ng/mL DIAGNOSTICS / RADIOLOGY RESULTS: [ ] PLAN Plan to return back to [facility] today. ([facility] aware of patient and is waiting for her return). Continue to monitor respiratory status closely. Continue DuoNeb nebulizer treatments and Mucomyst q.6 hours. Continue with diuresis with the Lasix 20 mg p.o. daily. Continue antibiotic therapy: Zosyn IV. Monitor renal and liver function. Monitor electrolytes and treat accordingly. Continue current medical management: Aspirin, atorvastatin, Keppra, metoprolol. Glucometer checks a.c. and HS with insulin regular sliding scale q.6 hours per protocol.. DVT and GI prophylaxis: Lovenox and Protonix NEURO: Minimize central acting medications as possible. Maintain fall precautions, adequate lighting during the day PULMONARY: Supplemental 02 as needed. Maintain aspiration precautions at all times CARDIOVASCULAR: Follow hemodynamics. Vital signs per facility protocol GI & NUTRITION: Continue with nutritional support. Continue stool softeners and laxatives as needed. KIDNEYS & ELECTROLYTES: Strict monitoring of intake, output and overall fluid balance. Avoid nephrotoxic medications to the extent possible. Medications to be dosed according to renal function. Monitor electrolytes and replace as needed ENDOCRINE: Maintain blood glucose between 100-180 at all times. Hypoglycemia protocol in place INFECTIOUS DISEASE: Trend temperature, WBC and procalcitonin level Follow cultures, deescalate antibiotics as soon as possible. Panculture if new onset fever ONCOLOGY/HEMATOLOGY/COAGULATION: Monitor for s/s of bleeding Monitor hemoglobin, coagulation studies as needed SKIN: Pressure ulcer prevention per facility protocol Specialty mattress ORTHO/REHAB: Continue PT/OT Prophylaxis: Continue GI and DVT prophylaxis Code Status: Full Resuscitation Disposition: TBD ATTESTATION BY PHYSICIAN I have evaluated the patient chart, medical records, and spoke with appropriate staff. I reviewed the documentation, medical decision making, and treatment plan as noted by the mid-level provider above. I agree with the findings and plan of care. Heri Garcia MD, [facility] Nov 22, 2024 11:10
--- NOTE | 2024-11-22 12:28 | PN ---
[facility] PROGRESS NOTE Date of Service: Nov 22, 2024 Time of Service: 12:26 SUBJECTIVE: [ ] Patient has been seen and examined during rounding, no acute events overnight, patient nonverbal, BP 120/70, afebrile, saturating 100% 2 L nasal cannula. Patient getting IV antibiotics during my visit. Chest x-ray showing patchy infiltrate or atelectasis medial left lung base. Serology negative for influenza type a and B as well as SARS antigen. 11/21/24 patient is seen and examined during my rounding, no acute events overnight, remains comfortably in bed, BP 162/84, saturating 98% 2 L via nasal cannula. WBC remains within the normal range. CMP unremarkable, septic workup so far negative. Venous Doppler no evidence of deep venous thrombosis within the bilateral lower extremity veins. We will discuss with case management [facility] of [facility]. 11/22/24 patient is seen and examined, BP 120/53, afebrile, saturating normal room air. CBC and CMP unremarkable. No acute events over tonight, the patient resting comfortably in bed, we will [facility] to [facility] today. REVIEW OF SYSTEMS CONSTITUTIONAL: Denies fevers, chills, or night sweats. No unintentional weight loss reported. NEUROLOGICAL: Denies headache, amaurosis fugax, motor weakness, sensory deficit, vertigo/spinning sensation, gait abnormalities, or tremors. ENT: No hearing loss, otalgia, otorrhea, rhinitis, rhinorrhea, hoarseness, or sore throat. CARDIOVASCULAR: Denies any exertional angina, dyspnea on exertion, orthopnea, paroxysmal nocturnal dyspnea, palpitations, life-threatening arrhythmias, claudication. PULMONARY: Denies any shortness of breath, cough, phlegm/sputum, hemoptysis, pleuritic chest pain. SLEEP: Denies morning headaches, daytime somnolence or napping. Denies difficulty falling asleep, staying asleep, waking from sleep. Denies knowledge of snoring. GASTROINTESTINAL: Denies any type of dysphagia to either liquids or solids. Denies nausea, vomiting, pyrosis, early satiety, abdominal pain, diarrhea, constipation, or changes in stool consistency or caliber. Denies coffee-ground emesis, hematemesis, hematochezia, or melanotic stools. GENITOURINARY: Denies frequency, urgency, nocturia, hematuria or incontinence (Storage/Irritative symptoms.) Low urinary stream, straining to void, urinary intermittency or hesitancy, splitting of the voiding stream, terminal dribbling. ENDOCRINOLOGIC: Denies polyuria, polydipsia, polyphagia or heat/cold intolerances. HEMATOLOGIC: Denies thrombophilia/previous clots, or coagulopathy/bleeding disorders. ONCOLOGIC: Denies personal history of malignancy. DERMATOLOGIC: Denies rashes or pruritus. PSYCHIATRIC: Denies any suicidal or homicidal ideation. Denies hallucinations. PHYSICAL EXAM GENERAL APPEARANCE: The patient is awake, alert, and oriented, in no acute cardiopulmonary distress. NEUROLOGICAL: Cranial nerves II-XII grossly intact. Motor is 5/5 in bilateral upper and lower extremities proximal to distal. No sensory deficits. HEENT: Face is symmetric. Pupils are equal and reactive. Extraocular movements are intact. NECK: Supple. No JVD. No thyromegaly. No submental, submandibular, pre- /postauricular, occipital or supraclavicular lymphadenopathy. CHEST: Normal chest expansion. No Telemetry. LUNGS: Absence of any rales, rhonchi or any wheezing. CARDIOVASCULAR: Regular. S1 and S2 normal. No appreciable rubs, murmurs or gallops. ABDOMEN: Soft, nontender, and nondistended. There is no rebound, voluntary guarding, or rigidity. : Deferred. No [place]. EXTREMITIES: Non-edematous and not cyanotic. No clubbing. Good capillary refill. SKIN: No skin breakdown. Vital Signs (last 8hr) Date Time Temp Pulse Resp B/P (MAP) Pulse Ox O2 Delivery O2 Flow Rate FiO2 11/22/24 12:11 98.1 81 18 128/53 97 Room Air 11/22/24 11:25 74 18 11/22/24 08:22 97.5 86 16 118/50 97 Room Air 11/22/24 08:00 97 Room Air* 0 21 11/22/24 07:06 91 18 11/22/24 07:05 20 N/A Room Air 21 11/22/24 05:00 98.2 74 18 129/65 94 Room Air LABS: Laboratory: Test 11/22/24 12:02 11/22/24 04:01 11/20/24 17:00 Range/Units Whole Blood Glucose 163 H 70-110 MG/DL White Blood Count 7.1 4.8-10.8 K/uL Red Blood Count 3.93 L 4.00-5.50 MIL/uL Hemoglobin 12.2 12.0-16.0 g/dL Hematocrit 37.1 36-48 % Mean Corpuscular Volume 94.4 79-99 fL Mean Corpuscular Hemoglobin 31.0 27.0-33.0 pg Mean Corpuscular Hemoglobin Concent 32.9 32.0-36.0 g/dL Red Cell Distribution Width 13.5 11.0-15.5 % Platelet Count 203 130-400 K/uL Mean Platelet Volume 11.0 H 7.5-10.5 fL Nucleated Red Blood Cells 0.0 0.0-0.19 % Sodium Level 146 H 136-145 mmol/L Potassium Level 3.5 3.5-5.1 mmol/L Chloride Level 106 101-111 mmol/L Carbon Dioxide Level 33 H 21-32 mmol/L Blood Urea Nitrogen 31 H 7-18 mg/dL Creatinine 0.9 0.5-1.0 mg/dL Glomerular Filtration Rate Calc 65 >90 mL/min Random Glucose 108 H 70-105 mg/dL Total Calcium 8.2 L 8.5-10.1 mg/dL Magnesium Level 2.20 1.80-2.40 mg/dL Total Bilirubin 0.4 0.2-1.0 mg/dL Aspartate Amino Transf (AST/SGOT) 26 10-37 U/L Alanine Aminotransferase (ALT/SGPT) 21 12-78 U/L Alkaline Phosphatase 72 50-136 U/L B-Type Natriuretic Peptide 228 H 0-100 pg/mL Total Protein 6.8 6.0-8.3 g/dL Albumin 2.5 L 3.5-5.0 g/dL D-Dimer Quantitative (PE/DVT) 1008 *H 0-500 ng/mL Current Medications Medications (Trade) Dose Ordered Sig/Xi Route PRN Reason Start Time Stop Time Status Last Admin Dose Admin Acetaminophen (TYLenol 325MG TAB) 650 mg Q6H PRN PO MILD PAIN (1-3) 11/19/24 12:30 12/19/24 12:29 Acetylcysteine (MUComyst 20% 4ML) 400mg = 2ml [id number] IH 11/19/24 12:00 11/22/24 09:47 DC 1/2/25 07:04 800 MG Albuterol (DUOneb) 1 UDVIAL [id number] IH 11/19/24 12:00 12/19/24 11:59 11/22/24 11:24 1 UDVIAL Aspirin (Aspirin 81mg Chew Tab) 81 mg DAILY PEG 11/21/24 09:00 12/21/24 08:59 11/22/24 09:09 81 MG Atorvastatin Calcium (LIPItor 40MG) 40 mg HS PO 11/21/24 21:00 12/21/24 20:59 11/21/24 21:30 40 MG Dexmedetomidine/ Sodium Chloride (PRECEdex 200MCG/ 50ML-NS) 200 mcg PROTOCOL IV 11/19/24 04:30 11/19/24 04:03 DC Dexmedetomidine/ Sodium Chloride (PRECEdex 400MCG/ 100ML-NS) 400 mcg PROTOCOL IV 11/19/24 04:00 11/19/24 04:01 DC Dexmedetomidine/ Sodium Chloride (PRECEdex 400MCG/ 100ML-NS) 400 mcg PROTOCOL IV 11/19/24 04:30 11/19/24 07:49 DC Dexmedetomidine/ Sodium Chloride (PRECEdex 400MCG/ 100ML-NS) 400 mcg PROTOCOL IV 11/19/24 04:30 11/19/24 16:10 DC 11/19/24 04:17 400 MCG Dextrose (D50w) 50 ml AD PRN IV HYPOGLYCEMIA PROTOCOL 11/19/24 17:00 12/19/24 16:59 Docusate Sodium (COLace LIQUID 100MG/10ML) 60 mg BID PEG 11/20/24 21:00 12/20/24 20:59 11/22/24 09:08 60 MG Enoxaparin Sodium (Lovenox) 40 mg DAILY SQ 11/19/24 09:00 12/19/24 08:59 11/22/24 09:08 40 MG Furosemide (LASix 20MG TAB) 20 mg DAILY PO 11/22/24 09:00 12/21/24 17:59 11/22/24 09:08 20 MG Furosemide (LASix 20MG TAB) 20 mg Q12H PO 11/21/24 18:00 11/22/24 08:54 DC 11/21/24 21:32 20 MG Furosemide (LASix 20MG VIAL) 20 mg Q12H IV 11/20/24 10:00 11/21/24 11:03 DC 11/21/24 09:40 20 MG Glucagon (Glucagon 1mg Kit) 1 mg AD PRN IM HYPOGLYCEMIA PROTOCOL 11/19/24 17:00 12/19/24 16:59 Home Med (Home Medication) (Escitalopram Oxalate 5 MG) DAILY PEG 11/21/24 09:00 12/21/24 08:59 Insulin Human Regular (humuLIN R 100 UNIT/ML 3ML) INSULIN SLIDING SCAL... Q6H6 SQ 11/19/24 18:00 12/19/24 17:59 Levetiracetam (kepPRA SOLN 100 MG/ML 5 ML UDCUP) 750 mg BID PEG 11/20/24 21:00 12/20/24 20:59 11/22/24 09:08 750 MG Metoprolol Tartrate (loprESSOR) 12.5 mg BID PO 11/20/24 21:00 12/20/24 20:59 11/22/24 09:09 12.5 MG Pantoprazole Sodium (PROTonix 40MG INJ) 40 mg DAILY IVP 11/19/24 09:00 12/19/24 08:59 11/22/24 09:09 40 MG Pharmacy Profile Note (Lace Assessment) 1 each AD MISC 11/19/24 14:00 11/19/24 13:58 DC Piperacillin Sod/ Tazobactam Sod (Zosyn 3.375gm+NS 50ml) 3.375 gm Q8H IV 11/22/24 09:30 11/29/24 09:29 11/22/24 09:28 3.375 GM Piperacillin Sod/ Tazobactam Sod (Zosyn 3.375gm+NS 50ml) 3.375 gm Q8H IV 11/19/24 08:00 11/22/24 09:25 DC 11/21/24 23:43 3.375 GM Potassium Chloride 100 ml @ 50 mls/hr AD PRN IV POTASSIUM PROTOCOL 11/20/24 10:00 12/20/24 09:59 Potassium Chloride (KCl 10% Elixir 20meq/15ml) 20 meq AD PRN PO POTASSIUM PROTOCOL 11/21/24 05:30 12/21/24 05:29 11/22/24 06:38 20 MEQ Simethicone (Mylicon) 80 mg DAILY PEG 11/21/24 09:00 12/21/24 08:59 11/22/24 09:08 80 MG DIAGNOSTICS / RADIOLOGY: [ ] ASSESSMENT: [Acute hypoxemic respiratory failure, POA Sepsis, POA Healthcare associated pneumonia, POA Hyponatremia, POA Dehydration, POA Acute on chronic diastolic Congestive heart failure exacerbation, POA Elevated BNP, POA Hypotension, POA Elevated lactic acid, POA ] PLAN: Patient remains admitted to the PCU We will continue with IV antibiotics Continue with gentle IV fluids Continue to follow Pulmonary input and recommendation Continue patient on diuretics with Lasix 40 mg IV b.i.d. We will repeat labs tomorrow Request medications from the [facility] GI and DVT prophylaxis We will repeat chest x-ray in the morning Disposition: [facility], we will discuss with case management. Total visit time spent greater than 30 minutes. KIKA HOFFMAN MD Nov 22, 2024 12:27
--- NOTE | 2024-11-22 16:07 | DS ---
Discharge Summary Hospital Course Summary: The patient initially admitted to the hospital November 19, 2024 with the following history of the present illness: 79-year-old female a jail resident with past medical history of chronic dysphagia, seizure disorder, peg tube dependent, heart failure who was brought to the ED via EMS due to patient's having shortness of breaths. Patient nonverbal, she was found in the jail with O2 saturation in the 80s, patient is also tachypneic. In the ED, her initial vital signs showed temperature of 99.7, pulse 128, respiratory rate 28, blood pressure 90/64, O2 sat 90% on room air. Patient having labored breathing. Chest x-ray was done which showed patchy infiltrate or atelectasis to the medial lung base. Patient started with high-flow nasal cannula FiO2 which improved her oxygen s aturation to 99%. Patient was started with IV Zosyn and was sent to ICU for close monitoring. 11/21/24 patient is seen and examined during my rounding, no acute events overnight, remains comfortably in bed, BP 162/84, saturating 98% 2 L via nasal cannula. WBC remains within the normal range. CMP unremarkable, septic workup so far negative. Venous Doppler no evidence of deep venous thrombosis within the bilateral lower extremity veins. We will discuss with case management possibility of transferring back to [facility] facility. 11/22/24 patient is seen and examined, BP 120/53, afebrile, saturating normal room air. CBC and CMP unremarkable. Possible transfer to [facility] facility today. Assessment/Plan: Final diagnosis Acute hypoxemic respiratory failure, POA Sepsis, POA Healthcare associated pneumonia, POA Hyponatremia, POA Dehydration, POA Acute on chronic diastolic Congestive heart failure exacerbation, POA Elevated BNP, POA Hypotension, POA Elevated lactic acid, POA Discharge Instructions: Patient to be discharge back to [facility] facility for continuation medical care, to return to hospital condition changes. Home Medications: Reported Medications Levetiracetam (Keppra) 100 Mg/Ml Solution, 7.5 ML PEG BID for 30 Days, #300 ML 0 Refills 11/19/24 Simethicone (Simethicone) 80 Mg Tab.chew, 0.5 TAB PEG DAILY for gas for 10 Days, #20 TAB 0 Refills 11/19/24 Famotidine (Pepcid) 20 Mg Tablet, 1 TAB PEG DAILY for 30 Days, #60 TAB 0 Refills 11/19/24 Aspirin (Aspirin) 81 Mg Tab.chew, 1 TAB PEG DAILY for 30 Days, #30 TAB 0 Refills 11/19/24 Furosemide (Furosemide) 20 Mg Tablet, 1 TAB PO BID for 30 Days, #30 TAB 0 Refills 11/19/24 Escitalopram Oxalate (Escitalopram Oxalate) 5 Mg Tablet, 5 MG PEG DAILY, TAB 07/28/24 Docusate Sodium (Docusate Sodium) 60 Mg/15 Ml Syrup, 60 MG PO BID, ML 07/28/24 Discontinued Reported Medications Multivit &Minerals/Ferrous Fum (Multivitamin Liquid) 9 Mg Iron/15 Ml Liquid, 9 MG PO DAILY 07/28/24 Levetiracetam (Levetiracetam) 750 Mg Tab.er.24h, 750 MG PEG BID, TAB 07/28/24 Glycerin/Propylene Glycol (Artificial Tears Drops) 0.3 %-1 % Drops, 30 ML OP TID, DROP 07/28/24 Ipratropium/Albuterol Sulfate (Iprat-Albut 0.5-3(2.5) mg/3 ml) 0.5 Mg-3 Mg (2.5 Mg Base)/3 Ml Ampul.neb, 3 ML IH Q6HPRN PRN for COUGH 07/28/24 Famotidine (Famotidine) 20 Mg Tablet, 20 MG PEG DAILY, TAB 07/28/24 Simethicone (Simethicone) 80 Mg Tab.chew, 80 MG PEG DAILY, TAB.CHEW 07/28/24 Acetaminophen (Acetaminophen) 650 Mg/20.3 Ml Oral.susp, 650 MG PEG Q4HPRN PRN for TEMPERATURE, ML 07/28/24 Furosemide (Furosemide) 20 Mg Tablet, 20 MG PEG DAILY, TAB 07/28/24 Time spent arranging discharge: 31-60 minutes KIKA HOFFMAN MD Nov 22, 2024 16:07
--- NOTE | 2024-11-22 22:01 | NUR ---
EMS arrived to transfer patient to [facility] vitals within normal range, 97.6-76-97%-18-127/49. Respirations even and unlabored no distressed, room air. total dependence simple commands, alert x1. hx cva. total dependent on feeding as well recently fed bolus via peg jevity and medications given. no pain voiced. incontinent bowel x1 and cleaned. no belongings at bedside transfer to [facility].
== END 2024-11-22 21:30 | DRG 871 ==
LOC: EDH 02:59 → EDHIP 05:36 → 2BH 07:52 → 2AH 18:30
PROVIDERS: ADMIT Internal Medicine; ATTEND Internal Medicine
PROC: 5A0935A Assistance with Respiratory Ventilation, Less than 24 Consecutive Hours, High Flow/Velocity Cannula (ICD-10-PCS; principal; 2024-11-19)
PROC: 5A0935A Assistance with Respiratory Ventilation, Less than 24 Consecutive Hours, High Flow/Velocity Cannula (ICD-10-PCS; 2024-11-20)
DX: A41.9 Sepsis, unspecified organism (principal); I50.33 Acute on chronic diastolic (congestive) heart failure; J18.9 Pneumonia, unspecified organism; J96.01 Acute respiratory failure with hypoxia; J69.0 Pneumonitis due to inhalation of food and vomit; J98.11 Atelectasis; E87.1 Hypo-osmolality and hyponatremia; E87.20 Acidosis, unspecified; G40.909 Epilepsy, unspecified, not intractable, without status epilepticus; I11.0 Hypertensive heart disease with heart failure; Y95 Nosocomial condition; E86.0 Dehydration; E11.9 Type 2 diabetes mellitus without complications; E78.5 Hyperlipidemia, unspecified; E86.1 Hypovolemia; K21.9 Gastro-esophageal reflux disease without esophagitis; I05.8 Other rheumatic mitral valve diseases; I05.0 Rheumatic mitral stenosis; I25.10 Atherosclerotic heart disease of native coronary artery without angina pectoris; Z74.01 Bed confinement status; Z87.01 Personal history of pneumonia (recurrent); Z93.1 Gastrostomy status; I69.320 Aphasia following cerebral infarction
CPT/HCPCS: 36415; 36600; 71045; 80048; 80053; 82306; 82435; 82550; 82607; 82803; 82947; 82948; 83605; 83735; 83880; 84132; 84295; 84484; 85018; 85025; 85027; 85378; 87040; 87635; 87804; 93005; 93970; 94640; 94664; 96375; 99285; G0378; J1650; J1940; J2470; J2543; J3370